=== PATIENT | male | born 1955 | race Caucasian/White ===

== ENCOUNTER → 2022-11-02 | Outpatient (CLI) | payer MEDICARE, OTHER ==
[2022-11-02 14:26] LABS: African American GFR (CKD) 61 (>60 ml/min/1.73 sqM); Blood Urea Nitrogen 30 mg/dL (9-20); Non-African American GFR(CKD) 53 (>60 ml/min/1.73 sqM)
--- NOTE | 2022-11-02 16:46 | CT ---
EXAMINATION TYPE: CT angio head neck DATE OF EXAM: 11/02/2022 COMPARISON: None HISTORY: dizziness and neck pain CT DLP: 1537.50 mGycm CONTRAST: Performed without and with IV Contrast, patient injected with 65ml mL of Isovue 370. Combination Contrast CTA cervical carotids and [place] CTA cervical carotids with 3-D recons truction examination is somewhat limited given poor timing of the contrast bolus. Contrast CTA of the cervical carotids was performed 3-D reconstruction imaging obtained at a separate workstation. Right carotid system: Mild plaque is seen of the right common carotid artery. There is mild plaque a lso noted at the carotid bulb and proximal ICA. No significant diameter reduction. ECA is patent. Right vertebral artery appears unremarkable. Left carotid system: Mild plaque is seen of the left common carotid artery. There is mild plaque als o noted at the carotid bulb and proximal ICA. No significant diameter reduction. ECA is patent. Lef t vertebral artery appears unremarkable. 1.1 cm solid nodule right thyroid lobe. Consider ultrasound correlation. IMPRESSION: 1. No significant diameter reduction to account for the patient's symptoms. CTA [place] with 3-D reconstruction Contrast CTA of the [place] was performed 3-D reconstruction imaging obtained at a separate workstation. Vertebrobasilar system as well as intracranial portions of the internal carotid arteries and their ma mary[place]ruz tributaries are patent. I do not see evidence for sizable aneurysm or vascular malformation. Pl ease note MRI provides greater sensitivity and specificity. Visualized brain appears grossly unremar kable. IMPRESSION: 1. Limited study given venous contamination. No sizable aneurysm or vascular malformation appreciated with certainty. NASCET criteria was used in interpretation of this exam?
== END | disposition home or self-care (01) ==
LOC: RADCTMAIN 13:51
PROVIDERS: ATTEND Orthopaedic Surgery
DX: R42 Dizziness and giddiness (principal); R55 Syncope and collapse
CPT/HCPCS: 82565; 84520; 70496; 70498; 36415; Q9967

== ENCOUNTER → 2023-01-11 | Outpatient (CLI) | payer MEDICARE, OTHER ==
[2023-01-11 15:52] LABS: Blood Urea Nitrogen 28.2 mg/dL (9.0-27.0); Carbon Dioxide 24.3 mmol/L (21.6-31.8); Chloride 104 mmol/L (96-109); Potassium 4.9 mmol/L (3.5-5.5); Sodium 141 mmol/L (135-145)
[2023-01-11 15:55] LABS: HCT 38.9 % (39.6-50.0); HGB 12.5 d/dL (13.0-17.0); MCH 29.7 pg (27.0-32.0); MCHC 32.1 d/dL (32.0-37.0); MCV 92.4 FL (80.0-97.0); Mean Platelet Volume 12.4 FL (9.5-12.2); NRBC Per 100 WBC 0 X 10*3/uL (0.00-0.01); Platelet Count 214 X 10*3/uL (140-440); RBC 4.21 X 10*6/uL (4.40-5.60); RDW 13.8 % (11.5-14.5); WBC 7.28 X 10*3/uL (4.50-10.00)
== END | disposition home or self-care (01) ==
LOC: LABPAT 09:19
PROVIDERS: ATTEND Internal Medicine Interventional Cardiology
DX: Z01.812 Encounter for preprocedural laboratory examination (principal); I34.0 Nonrheumatic mitral (valve) insufficiency
CPT/HCPCS: 80051; 82565; 84520; 85027

== ENCOUNTER 2023-01-18 08:52 | Day surgery (SDC) | payer MEDICARE, OTHER ==
[~2023-01-18 08:52] MED LIST: ALPRAZolam 0.25 MG TAB PO PRN; ALPRAZolam 0.5 MG TAB PO PRN; ASPIRIN 325 MG TAB PO STA; HEPARIN SODIUM,PORCINE (1 ML) 2,500 UNIT in SODIUM CHLORIDE 0.9% 250 ML IRRIGATION PRN; HEPARIN SODIUM,PORCINE 10,000 UNIT in SODIUM CHLORIDE 0.9% 1,000 ML IRRIGATION PRN; NITROGLYCERIN SL TABS 0.4 MG TAB SUBLINGUAL PRN; SODIUM CHLORIDE 0.9% 1,000 ML in EMPTY BAG 1 BAG IV ONE
[2023-01-18 09:19] VITALS: RESP 18; TEMP 98
[2023-01-18 09:20] LABS: Glucose,Whole Blood 124 mg/dL (70-110)
[2023-01-18 09:53] LABS: INR 1.1 (<1.2); Prothrombin Time 11.5 sec (10.0-12.5)
[2023-01-18] MEDS ORDERED: HEPARIN SODIUM,PORCINE 30 ML 30 ML ONE (10:32)
[2023-01-18] MEDS ORDERED: VERAPAMIL 2.5 MG/ML 2 ML AMP ONE (10:32)
[2023-01-18] MEDS ORDERED: MIDAZOLAM 2 MG/2 ML VIAL IVP ONE (10:50)
[2023-01-18] MEDS ORDERED: LIDOCAINE 1% INJ 10MG/ML (5 ML VIAL-PF) SQ ONE (11:03)
[2023-01-18] MEDS ORDERED: VERAPAMIL SYRINGE (5 MG/10 ML) INTRAARTER ONE (11:07)
[2023-01-18] MEDS ORDERED: HEPARIN SODIUM 1,000 UN/ML (10ML VL) IV ONE (11:07)
[2023-01-18] MEDS ORDERED: IOPAMIDOL-370 100ML BTL INJ ONE (11:12)
[2023-01-18] MEDS ORDERED: RX INFO: IV CONTRAST WAS GIVEN 1 EACH MISC MISCELLANE PRN (11:14)
[2023-01-18] MEDS ORDERED: SODIUM CHLORIDE 0.9% 1,000 ML IV SCH (11:15)
--- NOTE | 2023-01-18 11:18 | P.PCN ---
Date of Procedure: 01/18/23 Operative Findings: CARDIAC CATHETERIZATION PERFORMING PHYSICIAN: Shyam Napier MD, RPVI PROCEDURE PERFORMED: 1. Selective right and left coronary angiogram 2. Left heart catheterization 3. Ultrasound-guided access of the right radial artery INDICATION: This is a 67-year-old gentleman was diabetes and hypertension and dyslipidemia who was symptomatic. He underwent myocardial perfusion imaging stress test and that came in to be abnormal showing ischemia COMPLICATION: None APPROACH: Right radial artery LEVEL OF SEDATION: Moderate with a sedation length of 10 minutes PROCEDURE DESCRIPTION: After obtaining an informed consent, the patient was brought to cardiac lab[facility]. Local anesthesia was performed using lidocaine subcutaneously. The right radial artery was cannulated using Seldinger technique, the guidewire passed easily, following that we advanced a 5-Georgian sheath dilator assembly, the wire and dilator were removed and sheath was flushed. Following that, 2 mg of verapamil along with 5000 unit heparin were given. Selective right and left coronary angiogram using a 6-Georgian JR4 and JL 3.5 catheters. Following that we did left heart catheterization using the JL 3.5 which across aortic valve then I did pulled back across the valve The procedure was completed there was no complication. SELECTIVE CORONARY ANGIOGRAM: The right coronary artery: Large caliber vessel and a dominant vessel. Its angiographically normal. Left main: Has mild disease only. Bifurcates into an LCx and LAD The left circumflex: Large caliber vessel nondominant vessel was mild disease only. The left anterior descending artery: Large caliber vessel. The LAD is angiographically normal. It gives rises into a diagonal branch which seems to be angiographically normal. The LAD does not reach the apex HEMODYNAMICS: The LVEDP was 12 mmHg was no significant gradient across aortic valve CONCLUSION: 1. Normal coronary angiogram 2. Normal left-sided filling pressure POSTPROCEDURE MANAGEMENT: Medical treatment
[2023-01-18 14:54] VITALS: BP 130/60; PULSE 78
== END 2023-01-18 15:24 | disposition home or self-care (01) ==
LOC: CATHCVL 08:52
PROVIDERS: ATTEND Internal Medicine Interventional Cardiology
DX: I34.0 Nonrheumatic mitral (valve) insufficiency (principal); I10 Essential (primary) hypertension; E78.5 Hyperlipidemia, unspecified; E11.9 Type 2 diabetes mellitus without complications; F17.210 Nicotine dependence, cigarettes, uncomplicated; Z82.49 Family history of ischemic heart disease and other diseases of the circulatory system; Z79.82 Long term (current) use of aspirin; Z88.2 Allergy status to sulfonamides; Z79.899 Other long term (current) drug therapy
CPT/HCPCS: 93458; 85610; C1769; C1894; J2250; J2001; J1644; Q9967

== ENCOUNTER → 2023-04-28 | Outpatient (CLI) | payer MEDICARE, OTHER ==
[2023-04-28 13:57] LABS: Partial Thromboplastin Time 41.8 sec (22.0-30.0); Prothrombin Time 20.4 sec (10.0-12.5)
[2023-04-28 18:41] LABS: HCT 36.7 % (39.6-50.0); HGB 11.8 g/dL (13.0-17.0); MCH 29.4 pg (27.0-32.0); MCHC 32.2 g/dL (32.0-37.0); MCV 91.5 FL (80.0-97.0); Mean Platelet Volume 12.1 FL (9.5-12.2); NRBC Per 100 WBC 0 X 10*3/uL (0.00-0.01); Platelet Count 215 X 10*3/uL (140-440); RBC 4.01 X 10*6/uL (4.40-5.60); WBC 7.07 X 10*3/uL (4.50-10.00)
[2023-04-28 21:34] LABS: ALT 15 U/L (10-49); AST 21 U/L (14-35); Albumin 4.5 g/dL (3.8-4.9); Albumin/Globulin Ratio 1.61 Ratio (1.60-3.17); Alkaline Phosphatase 68 U/L (41-126); Blood Urea Nitrogen 33.6 mg/dL (9.0-27.0); Calcium 9.7 mg/dL (8.7-10.3); Carbon Dioxide 26.3 mmol/L (21.6-31.8); Chloride 101 mmol/L (96-109); Globulin 2.8 g/dL (1.6-3.3); Glucose 118 mg/dL (70-110); Potassium 4.7 mmol/L (3.5-5.5); Sodium 140 mmol/L (135-145); Total Bilirubin 0.3 mg/dL (0.3-1.2); Total Protein 7.3 g/dL (6.2-8.2)
== END | disposition home or self-care (01) ==
LOC: LABWHC1 12:04
PROVIDERS: ATTEND Orthopaedic Surgery
DX: Z01.818 Encounter for other preprocedural examination (principal); E11.65 Type 2 diabetes mellitus with hyperglycemia; E04.1 Nontoxic single thyroid nodule; E29.1 Testicular hypofunction
CPT/HCPCS: 36415; 80053; 82306; 83735; 85027; 85610; 85730; 86850; 86900; 86901; 87070

== ENCOUNTER 2023-05-06 10:43 | Inpatient (IN) | payer MEDICARE, OTHER ==
[2023-05-02 13:09] VITALS: BMI 31.7
--- NOTE | 2023-05-06 07:02 | P.HPOR ---
History of Present Illness H&P Date: 04/28/23 .D:Date: 04/28/23 : 11:03am .T:Title: [facility] History and Physical Date of :55 [id number]: NKDA Age: 67 year Height: 6' Weight: 231 lbs BMI: 31.33 kg/m2 Occupation: Retired VAS: 6 Hand:Right IMPRESSION: It was my pleasure to have seen and examined Stanislaw. I reviewed the patient's clinical syndrome, physical findings, and imaging studies during the appointment today. It is my impression that the patient has a diagnosis of. 1. C5-7 spondylosis and stenosis 2. Upper extremity radiculopathy 3. Dizziness & syncope I outlined the natural course history without intervention and various interventional options. Spine Surgery Risk Review Mr. Vail is presenting for evaluation of neck and bilateral upper extremity pain, bilateral upper extremity numbness and tingling. It was my pleasure to have seen and examined Mr. Vail. In our visit today we have had a chance to go over subjective complaints, physical examination findings and treatments including the natural course history without intervention and various interventional options. The patients imaging demonstrates: XRay Cervical multiview (Lateral, Flexion, Extension, AP, Oblique) 6 views taken at [facility] on 09/08/22: - Re-reviewed with the patient today. moderate multilevel spondylitic and degenerative changes with straightening of the normal lordosis. Multilevel diminished disc, most prominent C4-C7. There is bilateral foraminal stenosis at C5-C7. Anterior osteophyte complex present C5-C6, C6-C7. There is no subluxation between flexion and extension films. Vertebral body heights are preserved. No acute osseous abnormalities. MRI scancompleted at an Outside Facility from08/06/22 of [facility] Sp[facility]: - Re-reviewed with the patient today. Impression: 1. large left paracentral endplate spurring at C5-C6 has significant anterior thecal sac compression, cord contact in cord deformity. This extends into the left foramen with severe stenosis. Cord signal abnormality is not identified on this exam. Spinal canal narrowing is present. 2. Subligamentous disc h Subligamentous disc herniations with minimal to mild anterior thecal sac compression C2-C3, C3-C4, C4-C5. No spinal canal stenosis at these levels. On physical exam, Mr. Vail demonstrates: pain persisting around the base of the neck that radiates down into the bilateral upper extremities with a dull, ache-like quality. He notes frequent headaches, dizziness, and syncopal episodes. The patient denies experiencing any blurred or double vision at this time. The patient states that his neck pain is exacerbated by all activity, which makes it very difficult for him to complete any of his regular activities of daily living. The patient reports experiencing moderate to severe sleep disturbances related to his ongoing pain and associated symptoms. The patient notes that his symptoms have started to become unbearable. I have explained to the patient that as their condition progresses it will cause further neurological deficits and eventual paralysis. Based on the patients imaging, physical exam, and the rapid progression and disabling nature of their symptoms, at this time I recommend surgery in the form of a: C5-7 ACDF. I discussed the risk and benefits of this procedure at length with Mr. Vail. The patient agreed to considered pursuing the procedure above mentioned. Prior to surgery, she should follow up with her PCP (Cardio, ID, IM etc) for clearance. Questions were invited and answered, and the patient wishes to proceed as outlined below. Currently, I am recommendin.C5-7 ACDF 2.Review of surgical risks and benefits as well as an educational packet on the proposed surgical procedure. Risks: All surgical procedures come with inherent risks, including those related to positioning, anesthesia, intraoperative findings, and postoperative complications. It is important to understand that surgery does not come with any guarantee of a successful outcome as complications and adverse events are always possible. The patient was given a handout in office today discussing the surgical procedure and risks associated with the intervention, both of which were discussed with the patient. These risks include but are not limited to the following: * Experiencing same, different or even worse symptoms in back, neck, arms, or legs compared to before surgery. Requiring further surgery or other forms of treatment presently or at some time in the future at same or other levels of the intended spine surgery. On an extreme but fortunately relatively rare basis severe complication such as blindness, stroke, heart attack, temporary and/or permanent nerve injury, paralysis, coma, or may occur, sometimes without known explanation. Surgical complications may include but are not limited to risk of infection, fluid accumulation in the surgical dissection site, including a seroma or hematoma, that requires additional surgery, wound drainage, bleeding, new numbness or weakness, vision changes/loss, spinal fluid leakage, non-healing and/or infected incision, headaches, difficulty or inability to swallow, hoarseness, hemopneumothorax, pneumothorax, impotence, retrograde ejaculation, vaginal dryness; injury to nerves, spinal cord, blood vessels, lymphatics or other vital organs (i.e., bowel injury, injury to the great vessels); heterotopic bone formation; complications related to the hardware such as screws, rods, cages including misplaced hardware, device failure, instrumentation at the wrong spine level, hardware fracture/breakage, or hardware loosening; vertebral failure of the spinal column above or below the newly placed hardware; retained surgical instrumentations or devices and the need for further surgery. * Medical risks of the planned spine surgery include but are not limited to generalized Infections to the whole body or local areas outside of the surgical site (sepsis), heart attack, bleeding, anaphylaxis, meningitis, seizure, epilepsy, hearing loss, burn ellis, laceration of the head or other areas of the body, bruising, hypersensitivity of the skin, bladder over distension; allergic reaction; shoulder injury related to positioning; fat, blood and air clots to other areas of the body like heart, lungs, brain; failure of internal organs such as lungs, kidneys, liver and excessive bleeding. If blood transfusions are necessary, note that transfusions may cause intolerance reactions such as anaphylaxis or other complex reactions. Despite best efforts, the results of spine surgery might not heal in terms of bone, soft tissues such as skin, fascia, ligaments, and joints. Additionally, in order to achieve best possible results, spine surgery may be carried out beyond the initially planned levels and involve decompression, fusion including insertion of hardware at levels other than the original intended area of surgical interest change some portions of the procedure in order to ensure the best possible outcomes. With spine surgery and spinal fusion, there are different off label uses of instrumentation (devices, implants and hardware) as well as biological substances (bone morphogenic proteins, demineralized bone matrix) as well as using extra bone from allograft sources (i.e. cadaver bone) or autograft (iliac crest bone, ribs, or the spine itself). The patient has been given information about these practices and their inherent risks and benefits. [facility] is an educational center that serves as a training facility for neurosurgical and orthopedic [employer] and Nursing students. Physician assistants are medically trained surgical providers who function in the outpatient, inpatient, and operating room setting under the direct supervision of the attending surgeon. [facility] has multiple operating rooms with single and overlapping rooms running daily. They currently function under the required guidelines as produced by the [facility] Finance Committee with regards to the overlapping rooms and will continue to comply with changes to this policy as they occur. The requirements include and are complied with as follows: (1) the critical portions of the overlapping rooms will not occur at the same time, (2) the attending physician will be physically present during the critical portions of the procedure and immediately available during the entire case, and (3) a back-up attending is designated should the primary attending not be immediately available. The patient has had a chance to review all the listed information, has been given print outs detailing this information, and has had all his/her questions answered to their satisfaction. It was my pleasure to have seen and examined Mr. Vail. In our visit today we have had a chance to go over my understanding of our patient's current condition, the natural course history without intervention and various interventional options. Questions were invited and answered, and the patient wis hes to proceed as outlined above. I have seen and examined the patient for 25 minutes and we have spent more than 50% of the time in repeat and detailed counseling about the patient's condition, its natural course history with out and as much as can be predicted with surgery and re-review of various surgical treatment options. In conclusion, Mr. Vail requested we proceed with the above suggested surgery and are willing to accept risks and limitations of the suggested surgery as nature of the disease process and our best attempts at treatment for the condition. Follow- up: Post procedure Patient Education: (Informational booklet, instructions, etc) given at today's appointment: Yes .ED:Patient Education: Y Medications Reviewed: YES In our visit today Mr. Vail and I have had a chance to go over my understanding of the patient's current condition, the natural course history without intervention and various interventional options. Questions were invited and answered, and the patient wishes to proceed as outlined above. I will be sure to keep you updated afterMr. Vail returns here for further follow-up. Thank you again for your referral. Please do not hesitate to contact me if you have any further questions. Signed and authenticated by: Pedro Cavazos [facility] [address] [place] [address] This message is confidential, intended only for the named recipient(s) and may contain information that is privileged or exempt from disclosure under applicable law. If you are not the intended recipient(s), you are notified that the dissemination, distribution or copying of this information is strictly prohibited. If you received this message in error, please notify the sender then delete this message. Patient verbalizes understanding of the information discussed. The above note was initiated by Kell Solis, physician recording medical assistant internal medicine for Dr. Pedro Nobles. This note has been reviewed by Dr. Nobles, who has made his personal changes and impressions for this document. CC: PAUL Tuttle # SIGNED BY Pedro Nobles (GOO)05/02/2023 04:00PM Past Medical History Past Medical History: Atrial Fibrillation, Cancer, Diabetes Mellitus, Hearing Disorder / Deafness, Hyperlipidemia, Hypertension, Osteoarthritis (OA), Prostate Disorder Additional Past Medical History / Comment(s): Hx skin cancer. Hard of hearing. Enlarged prostate. Thyroid nodule. History of Any Multi-Drug Resistant Organisms: None Reported Past Surgical History: Cholecystectomy, Hernia Repair Past Anesthesia/Blood Transfusion Reactions: No Reported Reaction Additional Past Anesthesia/Blood Transfusion Reaction / Comment(s): "I get goofy when I wake up". Past Psychological History: No Psychological Hx Reported Smoking Status: Former smoker Past Alcohol Use History: None Reported Additional Past Alcohol Use History / Comment(s): Quit smoking 20 yrs ago, recently smoked for a year but quit 4 months ago. Past Drug Use History: None Reported - Past Family History Mother Family Medical History: Cancer, Deep Vein Thrombosis (DVT) Medications and Allergies Home Medications Medication Instructions Recorded Confirmed Type Cholecalciferol (Vitamin D3) 125 mg PO DAILY 01/13/23 05/02/23 History [Vitamin D3 (125 MCG = 5,000 IU)] Cyanocobalamin (Vitamin B-12) 1,000 mcg PO DAILY 01/13/23 05/02/23 History [Vitamin B-12] Magnesium 400 mg PO DAILY 01/13/23 05/02/23 History Metoprolol Tartrate [Lopressor] 50 mg PO QAM 01/13/23 05/02/23 History Pioglitazone HCl 15 mg PO QAM 01/13/23 05/02/23 History Pravastatin Sodium [Pravachol] 20 mg PO HS 01/13/23 05/02/23 History Terazosin [Hytrin] 2 mg PO HS 01/13/23 05/02/23 History Warfarin [Coumadin] 5 mg PO 1900 01/13/23 05/02/23 History amLODIPine [Norvasc] 10 mg PO QAM 01/13/23 05/02/23 History Enoxaparin [Lovenox] 100 mg SQ BID 05/02/23 05/02/23 History metFORMIN HCL 1,000 mg PO BID 05/02/23 05/02/23 History Allergies Allergy/AdvReac Type Severity Reaction Status Date / Time Sulfa (Sulfonamide Allergy Rash/Hives Verified 05/02/23 12:29 Antibiotics) Physical Examination Osteopathic Statement: *. No significant issues noted on an osteopathic structural exam other than those noted in the History and Physical/Consult.
[~2023-05-06 10:43] MED LIST changes: -ALPRAZolam 0.25 MG TAB PO PRN; -ALPRAZolam 0.5 MG TAB PO PRN; -ASPIRIN 325 MG TAB PO STA; -HEPARIN SODIUM,PORCINE (1 ML) 2,500 UNIT in SODIUM CHLORIDE 0.9% 250 ML IRRIGATION PRN; -HEPARIN SODIUM,PORCINE 10,000 UNIT in SODIUM CHLORIDE 0.9% 1,000 ML IRRIGATION PRN; -NITROGLYCERIN SL TABS 0.4 MG TAB SUBLINGUAL PRN; +ONDANSETRON 4 MG/2 ML VIAL IVP PRN; -SODIUM CHLORIDE 0.9% 1,000 ML in EMPTY BAG 1 BAG IV ONE; +TRANEXAMIC 1,000 MG/100ML-NACL 1,000 MG in SALINE 1 100ML.BAG IVPB PRN
[2023-05-06] MEDS ORDERED: MIDAZOLAM 2 MG/2 ML VIAL IV PRN (11:00)
[2023-05-06 11:26] LABS: Glucose,Whole Blood 127 mg/dL (70-110)
[2023-05-06] MEDS: LACTATED RINGERS 1,000 ML IV SCH (11:29)
[2023-05-06] MEDS: LACTATED RINGERS 1,000 ML IV ONE ×2 (11:34→14:26)
[2023-05-06] MEDS: MIDAZOLAM 2 MG/2 ML VIAL IVP ONE ×2 (11:45→12:05)
[2023-05-06] MEDS: ACETAMINOPHEN TAB 500 MG TAB PO PRN (11:45)
[2023-05-06] MEDS: GABAPENTIN 300 MG CAP PO PRN (11:45)
[2023-05-06 11:50] LABS: Prothrombin Time 11.2 sec (10.0-12.5)
[2023-05-06] MEDS: fentaNYL (PF) 50 MCG/ML 2 ML AMP IVP ONE (11:50)
[2023-05-06] MEDS: ONDANSETRON 4 MG/2 ML VIAL IVP ONE (12:18)
[2023-05-06] MEDS ORDERED: TRANEXAMIC 1,000 MG/100ML-NACL PREMIX BAG ONE (12:25)
[2023-05-06] MEDS ORDERED: LIDOCAINE 1% INJ 10MG/ML (20 ML MDV) ONE (12:25)
[2023-05-06] MEDS ORDERED: fentaNYL (PF) 50 MCG/ML 2 ML AMP ONE (12:25)
[2023-05-06] MEDS ORDERED: PROPOFOL 10 MG/ML 20 ML VIAL IV ONE (12:25)
[2023-05-06] MEDS ORDERED: KETAMINE HCL IN 0.9 % NACL 50 MG/5 ML SYRINGE ONE (12:25)
[2023-05-06] MEDS ORDERED: SUCCINYLCHOLINE CHLORIDE 200 MG/10 ML VIAL IV ONE (12:25)
--- NOTE | 2023-05-06 12:29 | P.ANPRN ---
Procedure Note - Anesthesia - Invasive Line Right Arterial Line Time Out Performed: Yes Date of Procedure: 05/06/23 Time of Procedure: 12:15 Location of Patient: PreOp Preparation: Sterile Prep Arterial Line Location: Briachial Ultrasound Used: Yes Purpose - Visualization and Identification of Vasculature: Yes Narrative: Invasive line placement per sterile protocol utilized. Initial attemptX2 radial artery without success by me. Dr. Strong in R. brachial artery with success
[2023-05-06] MEDS: GELATIN SPONGE,ABSORB (LARGE) 1 EACH SPONGE TOPICAL ONE (12:30)
[2023-05-06] MEDS: THROMBIN (BOVINE) 5,000 UNIT VIAL TOPICAL ONE (12:30)
[2023-05-06] MEDS: VANCOMYCIN 1,000 MG VIAL MISCELLANE ONE (12:30)
--- NOTE | 2023-05-06 14:57 | XR ---
Fluoroscopy INDICATION: Pain FINDINGS: Fluoroscopy time: 15.1 seconds. Total dose area product (DAP) in uGy*m?, mGy*cm? (or similar): 0.182 Images obtained: 9. IMPRESSION: 1. Documentation of fluoroscopy.
--- NOTE | 2023-05-06 15:06 | P.OP ---
Date of Procedure: 05/06/23 Preoperative Diagnosis: 1. 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 BUE RADICULOPATHY AND WEAKNESS 3. NECK PAIN 4. COMPLEX MEDICAL PATIENT Postoperative Diagnosis: 1. 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 BUE RADICULOPATHY AND WEAKNESS 3. NECK PAIN 4. COMPLEX MEDICAL PATIENT Procedure(s) Performed: 1. C5-6 ANTERIOR CERVICAL ARTHRODESIS 2. C6-7 ANTERIOR CERVICAL ARTHRODESIS 3. ANTERIOR INSTRUMENTATION C5-7 4. INSERTION OF BIOMECHANICAL DEVICE C5-6 AND C6-7 USE OF IONM USE OF IO MICROSCOPE Implants: AYAD/4 CADE INTERBODY 16MM SCREW PLATE INTERFACE [employer] Anesthesia: GETA Surgeon: Pedro Nobles Vice President Of Finance #1: Jayro Stoll (WAS PRESENT AND ASSISTED WITH ALL ASPECTS OF THE CASE FROM POSITION TO CLOSURE) Estimated Blood Loss (ml): 25 IV fluids (ml): 1,125 Urine output (ml): 0 Pathology: none sent Condition: stable Disposition: PACU Indications for Procedure: Mr. Vail is presenting for evaluation of neck and bilateral upper extremity pain, bilateral upper extremity numbness and tingling. It was my pleasure to have seen and examined Mr. Vail. In our visit today we have had a chance to go over subjective complaints, physical examination findings and treatments including the natural course history without intervention and various interventional options. The patients imaging demonstrates: XRay Cervical multiview (Lateral, Flexion, Extension, AP, Oblique) 6 views taken at [facility] on 09/08/22: - Re-reviewed with the patient today. moderate multilevel spondylitic and degenerative changes with straightening of the normal lordosis. Multilevel diminished disc, most prominent C4-C7. There is bilateral foraminal stenosis at C5-C7. Anterior osteophyte complex present C5-C6, C6-C7. There is no subluxation between flexion and extension films. Vertebral body heights are preserved. No acute osseous abnormalities. MRI scancompleted at an Outside Facility from08/06/22 of [facility] Sp[facility]: - Re-reviewed with the patient today. Impression: 1. large left paracentral endplate spurring at C5-C6 has significant anterior thecal sac compression, cord contact in cord deformity. This extends into the left foramen with severe stenosis. Cord signal abnormality is not identified on this exam. Spinal canal narrowing is present. 2. Subligamentous disc h Subligamentous disc herniations with minimal to mild anterior thecal sac compression C2-C3, C3-C4, C4-C5. No spinal canal stenosis at these levels. On physical exam, Mr. Vail demonstrates: pain persisting around the base of the neck that radiates down into the bilateral upper extremities with a dull, ache-like quality. He notes frequent headaches, dizziness, and syncopal episodes. The patient denies experiencing any blurred or double vision at this time. The patient states that his neck pain is exacerbated by all activity, which makes it very difficult for him to complete any of his regular activities of daily living. The patient reports experiencing moderate to severe sleep disturbances related to his ongoing pain and associated symptoms. The patient notes that his symptoms have started to become unbearable. I have explained to the patient that as their condition progresses it will cause further neurological deficits and eventual paralysis. Based on the patients imaging, physical exam, and the rapid progression and disabling nature of their symptoms, at this time I recommend surgery in the form of a: C5-7 ACDF. I discussed the risk and benefits of this procedure at length with Mr. Vail. The patient agreed to considered pursuing the procedure above mentioned. Prior to surgery, she should follow up with her PCP (Cardio, ID, IM etc) for clearance. Questions were invited and answered, and the patient wishes to proceed as outlined below. Currently, I am recommendin.C5-7 ANTERIOR CERVICAL DISCECOMTY AND FUSION Description of Procedure: C5-7 ACDF The patient was seen and examined in the preoperative area. All preoperative protocols were followed. Informed consent was obtained, risks and benefits of the procedure were discussed at length. Risks including bleeding infection damage to the surrounding tissue and risk of reoperation were discussed with the patient. Risk of anesthesia up to and including was discussed with the patient. These are outlined in the risk review. They were willing to accept these risks and all the risks of surgery. The patient was given a weight-based dose of antibiotics in the form of 2 g Ancef. The patient was seen and evaluated by the anesthesia team who deemed them fit for surgery. The site was marked, the patient was willing to proceed with the procedure. The patient was transferred to the operative suite by the Department of anesthesia. They were then drifted off to sleep by the department anesthesia and GETA was performed. The patient tolerated this well. Adames catheter was placed by nursing staff, a-traumatically. Once confirmation of lines and ventilation the patient was transferred to a Supine Shahram table very carefully. All bony prominences including wrists, elbows, axilla, chest, hips, and thighs, and feet were padded very well. Special attention was paid to the genitalia, and these were padded accordingly. SCDs were placed on bilateral lower extremities and were connected. Arms were well padded and placed at their side thumbs up. Once in position, again we confirmed good ventilation capabilities and that lines were running appropriately. The patients Cervical spine was then exposed. 1010s were placed outlining the incision site. Standard alcohol was used to clean the incision site and allowed to dry. C-arm was used to bio-berna the patient and confirm level for incision which was marked with a skin marker. Operative briefing was performed with all teams and everyone in agreement to proceed. The patient was then prepped and draped in a normal sterile fashion. Timeout was then performed, and all parties agreed with the procedure to be performed. Transverse skin incision was then made on the right side of the patient's neck 3 cm and dissection taken down to the platysma which was split transversely. Sub platysma flap was made, and interval identified between SCM and medial structures. Omohyoid was visualized and protected. Blunt dissection taken down to the anterior cervical fascia which was identified. Blunt probe was then plac ed and lateral image taken which confirmed levels for operation. These levels were then marked with a bovi. Subperiosteal dissection of the longissimus muscles were then done over these levels identifying uncovertebral joints bilaterally. Retractor was then placed deep to these muscles and held in place with a bed arm. Starting at C6-7, Chandler pins were placed into C6 and C7 and gentle distraction taken out over the levels. Madie rongeur used to remove disc material. Operating microscope brought in for visualization. Complete discectomy performed at this level with curette, rongure and pituitary. High speed ke used to remove osteophytes anteriorly and posteriorly until PLL was identified. 6-0 up curette then used to identify the canal and resect the PLL. 2-0 and 3-0 Kerrison used then to remove PLL and disc herniation and performed b/l foraminotomies. Once good decompression was accomplished, meticulous hemostasis was performed. Sizers were then placed under lateral fluoroscopy until the desired height and lordosis. Cage was then selected, packed with autograft and allograft and placed under lateral imaging. Once in good position it was tested and stable. Motors run before and after cage placement were stable. The wound was irrigated, and autograft placed lateral to the cage anteriorly for fusion. Chandler pin was then removed from C7 and placed into C5. Gentle distraction taken out over C5-6 now. Complete discectomy done at C5-6 as described including decompression, b/l foraminotomies and PLL resection. Burring of endplates was minimal, osteophytes removed as described. Spacers were then sized and placed under lateral imaging. Cage selected, packed with graft and placed under lateral images. Once in position, meticulous hemostasis performed, and motors remained stable before and after cage placement. AP image confirmed good placement of cages. Wound was irrigated. Anterior instrumentation was then selected and screws drilled into C7 and placed and Then into C6. This was repeated at C5 with variable screws. All locking mechanisms were set, and all screws had good purchase. Final AP and lateral images taken confirmed good placement of hardware and good reduction and protestant of height. The wound was then irrigated copiously with NSS. Surgicel placed deep in the wound. A deep drain placed out a separate incision and sewed into place. Layered closure then performed with 3-0 Vicryl in the platysma and subQ tissue. 4-0 Strata fix in the subcuticular tissue. The wound was then cleaned, and dried and skin glue placed. Once glue dried on Opifoam was placed. The patient was then transferred back to their hospital bed a-traumatically. The drain continued to hold suction. They were placed in a soft collar. They we re then awakened by the department of anesthesia having tolerated the procedure well without complications.
[2023-05-06] MEDS ORDERED: ONDANSETRON 4 MG/2 ML VIAL IVP PRN (15:13)
[2023-05-06] MEDS ORDERED: MAGNESIUM HYDROXIDE 2,400 MG/30 ML CUP PO PRN (15:13)
[2023-05-06] MEDS ORDERED: SENNOSIDES-DOCUSATE SODIUM 1 EACH TAB PO PRN (15:13)
[2023-05-06] MEDS: HYDROmorphone 0.5 MG/0.5 ML SYRINGE IVP PRN (15:58)
[2023-05-06 16:10] LABS: Glucose,Whole Blood 109 mg/dL (70-110)
--- NOTE | 2023-05-06 16:49 | FL ---
EXAMINATION TYPE: FL guidance operating room Intraoperative/procedural fluoroscopic services were pro vided. Total fluoroscopy time is 15.1 seconds with a total of 8 submitted images to PACS. Please see the operative/procedural note for further details. DAP: 0.1882 mGym2
[2023-05-06] MEDS: HYDROcodone/APAP 7.5-325MG 1 EACH TAB PO PRN (21:11)
[2023-05-07 05:26] LABS: Glucose,Whole Blood 106 mg/dL (70-110)
[2023-05-07] MEDS: HYDROmorphone 0.5 MG/0.5 ML SYRINGE IVP PRN (05:28)
[2023-05-07] MEDS ORDERED: DEXTROSE 50% SYRINGE 50 ML IVP PRN ×2 (07:07)
--- NOTE | 2023-05-07 07:16 | P.CONS ---
History of Present Illness - Reason for Consult Consult date: 05/07/23 Medical managment Requesting physician: Pedro Nobles - Chief Complaint Post C spine surgery, DM, Coagulopathy, A Fib - History of Present Illness HISTORY OF PRESENT ILLNESS: 67-year-old male [facility] [place] for office patient with past medical history of A-fib, diabetes, hypertension, hyperlipidemia, who is on long-term anticoagulation and seen cardiology regular basis and had negative recent cardiac workup including negative heart cath for any significant blockage. The patient has been evaluated for bilateral upper extremity pain numbness tingling and radiculopathy through his testing from September last year showed significant degenerative disc disease with curvature with multiple area of spinal stenosis between C5 and C7 and degenerative disc disease between C4 and C7 MRI of the spine showed large left paracentral endplate spurring with mild anterior compression of the C2-C3, C3-C4, C4-C5. The patient had seen orthopedic and explained to him the procedure need to have done with his C5-7 ACDF.. Patient was cleared for surgery by our service and by cardiology, surgery was done successfully on 05/06/2023, he is resting comfortably in bed was admitted to the hospital afterward. Patient is on long-term anticoagulation management was placed on Lovenox for the last 5 days before his surgery will be converted back into warfarin with daily PT/INR until his INR is therapeutic Lovenox 120 mg subcutaneous twice a day was restarted back again. And if agreed by orthopedic we will start him back on warfarin between 5 and 10 mg daily till his INR is about 1.5. Will start backing off on his Lovenox. Pain is still an issue but well-managed with current medication. REVIEW OF SYSTEMS: CONSTITUTIONAL: Well-developed no acute respiratory distress. Resting in bed with cervical spine collar on. EYES: No icterus sclerae, no conjunctivitis. EARS, NOSE, MOUTH, THROAT, and FACE: No sore throat, lymphadenopathy, carotid bruits or deformity. RESPIRATORY: No SOB cough or wheezes. CARDIOVASCULAR: No CP, Palpitation, PND, Orthopnea, or angina. History A-fib GI no chest pain. GASTROINTESTINAL: No Abd pain, Nausea or vomiting, no Diarrhea or constipation, No GI Bleed, no distention or masses. GENITOURINARY: Negative for Hematuria or UTI, no kidney stones. INTEGUMENT/BREAST: Negative for any muscular injury with mild osteoarthritis.. HEMATOLOGIC/LYMPHATIC: Negative for bleed or purpura. MUSCULOSKELTAL: Negative for Myalgia or arthralgia. NEURLOGICAL: No LOC, Sz or syncope, blurred vision dizziness or abnormality.. BEHAVIORAL/PSYCH: Negative. ENDOCRINE: Negative. PHYSICAL EXAMINATION: General Appearance: Alert, cooperative, no distress, appears stated age. Mildly overweight resting in bed with c-collar on. Neck HEENT: Supple, no lymphadenopathy, no thyroid enlargement, no carotid bruits. Lungs: Clear to auscultation without crackles or wheezes no rhonchi, no deformity. Chest Wall: Decreased expansion with deep inspiration no tenderness and no deformity was found on exam, no costochondral pain or discomfort. Heart: Irregular rate and rhythm, S1, S2 normal, no murmur, rub or gallop. Back: Symmetric, no curvature, ROM normal, no CVA tenderness. Abdomen: Soft, non-tender, bowel sounds active all four quadrants, no masses, no organomegaly. Extremities: Extremities normal, atraumatic, no cyanosis or edema. Pulses: 2+ and symmetric. Skin: Skin color, texture, tugor normal, no rashes or lesions. Neurologic: Alert oriented x3 cranial nerves II through XII intact, still have slight weakness in the upper extremities at this point. ASSESSMENT AND PLAN: _Post C5-7 ACDF: Continue postsurgical follow-up including GI, DVT, pulmonary prophylaxis. Patient pain management will be watched carefully. Also will watch patient hemodynamic status carefully as well. _A-fib: Resume medication including metoprolol titrate and will continue Lovenox for now while he is restarting back on warfarin until his INR is therapeutic. _Type 2 diabetes: Remain on metformin and pioglitazone will continue Accu-Chek with sliding scale coverage. _Hypertension: Resume amlodipine 10 mg a day along with Hytrin 2 mg daily and still on metoprolol titrate 50 mg daily. _Hyperlipidemia patient will be started back on pravastatin 20 mg a day. _BPH: Watch for any urinary retention remain on Hytrin currently no Adames catheter, we should watch patient residual to make sure there is no retention. _Anticoagulation: Patient was on warfarin 5 mg daily and was over bridge by Lovenox before surgery and the plan was to start Lovenox after surgery the patient was approved apparently for anticoagulation he is going to be started on Eliquis 5 mg twice a day start today and discontinue Lovenox altogether the patient end up leaving the hospital tomorrow he should be just on Eliquis without need for any further detail on anticoagulation. _GI prophylaxis: Pantoprazole 40 mg daily will be started. _DVT prophylaxis: Patient is already on anticoagulation. CODE STATUS: Full code. Dr. Nobles thank you much for the consult if I can be any further help to please let me know thank you. Past Medical History Past Medical History: Atrial Fibrillation, Cancer, Diabetes Mellitus, Hearing Disorder / Deafness, Hyperlipidemia, Hypertension, Osteoarthritis (OA), Prostate Disorder Additional Past Medical History / Comment(s): Hx skin cancer. Hard of hearing. Enlarged prostate. Thyroid nodule. History of Any Multi-Drug Resistant Organisms: None Reported Past Surgical History: Cholecystectomy, Hernia Repair Past Anesthesia/Blood Transfusion Reactions: No Reported Reaction Additional Past Anesthesia/Blood Transfusion Reaction / Comm: "I get goofy when I wake up". Past Psychological History: No Psychological Hx Reported Smoking Status: Former smoker Past Alcohol Use History: None Reported Additional Past Alcohol Use History / Comment(s): Quit smoking 20 yrs ago, recently smoked for a year but quit 4 months ago. Past Drug Use History: None Reported - Past Family History Mother Family Medical History: Cancer, Deep Vein Thrombosis (DVT) Medications and Allergies Home Medications Medication Instructions Recorded Confirmed Type Cholecalciferol (Vitamin D3) 125 mg PO DAILY 01/13/23 05/06/23 History [Vitamin D3 (125 MCG = 5,000 IU)] Cyanocobalamin (Vitamin B-12) 1,000 mcg PO DAILY 01/13/23 05/06/23 History [Vitamin B-12] Magnesium 400 mg PO DAILY 01/13/23 05/06/23 History Metoprolol Tartrate [Lopressor] 50 mg PO QAM 01/13/23 05/06/23 History Pioglitazone HCl 15 mg PO QAM 01/13/23 05/06/23 History Pravastatin Sodium [Pravachol] 20 mg PO HS 01/13/23 05/06/23 History Terazosin [Hytrin] 2 mg PO HS 01/13/23 05/06/23 History Warfarin [Coumadin] 5 mg PO 1900 01/13/23 05/06/23 History amLODIPine [Norvasc] 10 mg PO QAM 01/13/23 05/06/23 History Enoxaparin [Lovenox] 100 mg SQ BID 05/02/23 05/06/23 History metFORMIN HCL 1,000 mg PO BID 05/02/23 05/06/23 History Allergies Allergy/AdvReac Type Severity Reaction Status Date / Time Sulfa (Sulfonamide Allergy Rash/Hives Verified 05/06/23 11:10 Antibiotics) Physical Exam Vitals: Vital Signs Temp Pulse Pulse Resp BP Pulse Ox 05/07/23 00:25 98.6 F 78 18 141/78 96 05/06/23 19:00 57 L 16 132/61 96 05/06/23 18:50 97.6 F 77 18 146/71 92 L 05/06/23 18:30 56 L 16 121/56 99 05/06/23 18:00 61 12 117/53 100 05/06/23 17:45 62 17 120/54 99 05/06/23 17:30 60 15 138/55 99 05/06/23 17:15 61 16 128/51 98 05/06/23 17:00 68 16 139/58 97 05/06/23 16:45 66 16 140/55 97 05/06/23 16:30 77 16 150/71 97 05/06/23 16:15 76 16 137/68 100 05/06/23 15:58 72 16 142/68 100 05/06/23 15:44 68 14 142/67 100 05/06/23 15:25 96.8 F L 68 10 L 144/62 99 05/06/23 12:24 69 16 131/61 97 05/06/23 11:20 97.0 F L 66 157/70 99 Intake and Output 05/06/23 05/06/23 05/07/23 14:59 22:59 06:59 Intake Total 2049 500 Output Total 25 920 Balance 2024 500 -920 Intake: IV 2049 500 Output: Drainage 20 Right Anterior Neck 20 Urine 900 Estimated Blood Loss 25 Other: # Voids 4 Weight 108.3 kg 108.3 kg Results Labs: Abnormal Lab Results - Last 24 Hours (Table) 05/06/23 Range/Units 11:25 POC Glucose (mg/dL) 127 H (70-110) mg/dL
[2023-05-07] MEDS ORDERED: INSULIN ASPART (NovoLOG) 100 UNIT/ML VIAL SQ SCH (07:30)
[2023-05-07] MEDS: INSULIN ASPART (NovoLOG) 100 UNIT/ML VIAL SQ SCH (07:42)
[2023-05-07] MEDS: CYANOCOBALAMIN 500 MCG TAB PO SCH (08:03)
[2023-05-07] MEDS: MAGNESIUM OXIDE 400 MG TAB PO SCH (08:03)
[2023-05-07] MEDS: CHOLECALCIFEROL 125 MCG (5000 IU) TABLET PO SCH (08:03)
[2023-05-07] MEDS: metFORMIN 500 MG TAB PO SCH (08:03)
[2023-05-07] MEDS: METOPROLOL TARTRATE 50 MG TAB PO SCH (08:03)
[2023-05-07] MEDS: amLODIPine 10 MG TAB PO SCH (08:03)
[2023-05-07] MEDS: APIXABAN 5 MG TAB PO SCH (09:00)
[2023-05-07] MEDS: PIOGLITAZONE 15 MG TAB PO SCH (09:00)
--- NOTE | 2023-05-07 09:01 | P.PN ---
Subjective Progress Note Date: 05/07/23 Principal diagnosis: Status post C5-C7 ACDF Patient was evaluated today at bedside, his was present. Internal medicine was also present at bedside. Patient was a little shaky when initially trying to ambulate. He is utilizing the rigid c-collar. Mild serosanguineous bloody drainage noted in the drain. Patient's pain is controlled. He is having slight difficult time swallowing, he remains on soft foods. No headaches, lightheadedness, chest pain or shortness of breath Objective - Vital Signs Vital signs: Vital Signs Temp 98.6 F 05/07/23 00:25 Pulse 78 05/07/23 00:25 Resp 18 05/07/23 00:25 BP 141/78 05/07/23 00:25 Pulse Ox 96 05/07/23 00:25 FiO2 Intake & Output 05/06/23 05/07/23 05/07/23 18:59 06:59 18:59 Intake Total 2250 300 Output Total 25 920 Balance 2225 -620 Weight 108.3 kg 108.3 kg Intake: IV 2250 300 Output: Drainage 20 Right Anterior Neck 20 Urine 900 Estimated Blood Loss 25 Other: # Voids 4 - Exam Gen: AOx3, NAD VSS stable at this time Integument: Postop bandages in good position and condition, mild bloody drainage noted on the edges. Drain is putting out mild bloody serosanguineous fluid Palpation: No significant tenderness with palpation noted to the anterior posterior cervical spine ROM: Full range of motion in all major muscle groups of the bilateral upper and lower extremities, no focal deficits Sensory Exam: Senory exam to light touch is intact C5-T1 Senosry exam to light touch is intact L2-S1 Motor: 4/5 strength appreciated the bilateral upper extremities with shoulder elevation, shoulder abduction, elbow extension, elbow flexion, wrist extension, wrist flexion, shampoo person 4+/5 strength appreciated to bilateral lower extremities with knee flexion, knee extension, hip flexion, plantarflexion, dorsiflexion, EHL, FHL Reflexes: 2/4 in all UE and LE Negative Chanda's, Babinski, clonus bilaterally - Labs Labs: Abnormal Lab Results - Last 24 Hours (Table) 05/06/23 Range/Units 11:25 POC Glucose (mg/dL) 127 H (70-110) mg/dL Assessment and Plan Assessment: Postoperative day #1 status post C5-C7 ACDF Plan: Pain control, continue with current medications Recommend continuing soft diet until swallowing improves DVT prophylaxis, internal medicine was discussed with patient and the use of both Lovenox while his INR becomes therapeutic. Maintain rigid c-collar at this time Weight-bear as tolerated with walker Leave drain in place at this time, will reassess on 05/08/2023, likely remove at that time along with bandage change Medical recommendations appreciated Discharge planning: Plan for discharge to home on 05/08/2023 Time with Patient: Less than 30
[2023-05-07 11:54] LABS: Glucose,Whole Blood 114 mg/dL (70-110)
[2023-05-07] MEDS: CYCLOBENZAPRINE 5 MG TAB PO PRN (14:10)
[2023-05-07 16:50] LABS: Glucose,Whole Blood 101 mg/dL (70-110)
[2023-05-07] MEDS ORDERED: WARFARIN 5 MG TAB PO SCH (19:00)
[2023-05-07] MEDS: HYDROmorphone 1 MG/ML 1 ML SYRINGE IVP PRN (20:31)
[2023-05-07] MEDS: PRAVASTATIN SODIUM 20 MG TAB PO SCH (20:31)
[2023-05-07] MEDS ORDERED: ENOXAPARIN 120 MG/0.8 ML SYRINGE SQ SCH (21:00)
[2023-05-07 21:28] LABS: Glucose,Whole Blood 93 mg/dL (70-110)
[2023-05-07] MEDS: DOXAZOSIN 2 MG TAB PO SCH (21:29)
[2023-05-08 06:01] LABS: Glucose,Whole Blood 102 mg/dL (70-110)
[2023-05-08 09:15] LABS: HCT 32.1 % (39.6-50.0); HGB 10.5 g/dL (13.0-17.0); MCH 29.4 pg (27.0-32.0); MCHC 32.7 g/dL (32.0-37.0); MCV 89.9 FL (80.0-97.0); Mean Platelet Volume 12.1 FL (9.5-12.2); NRBC Per 100 WBC 0 X 10*3/uL (0.00-0.01); Platelet Count 172 X 10*3/uL (140-440); RBC 3.57 X 10*6/uL (4.40-5.60); WBC 11.87 X 10*3/uL (4.50-10.00)
[2023-05-08 09:31] LABS: ALT 52 U/L (10-49); AST 76 U/L (14-35); Albumin 3.8 g/dL (3.8-4.9); Albumin/Globulin Ratio 1.73 Ratio (1.60-3.17); Alkaline Phosphatase 74 U/L (41-126); BUN/Creat Ratio 17.64 Ratio (12.00-20.00); Blood Urea Nitrogen 19.4 mg/dL (9.0-27.0); Calcium 8.8 mg/dL (8.7-10.3); Carbon Dioxide 24.2 mmol/L (21.6-31.8); Chloride 100 mmol/L (96-109); Globulin 2.2 g/dL (1.6-3.3); Glucose 97 mg/dL (70-110); Potassium 4.1 mmol/L (3.5-5.5); Sodium 137 mmol/L (135-145); Total Bilirubin 0.6 mg/dL (0.3-1.2)
--- NOTE | 2023-05-08 09:52 | P.PN ---
Subjective Progress Note Date: 05/08/23 Principal diagnosis: Status post C5-C7 ACDF Patient was evaluated today at bedside, his was present. Patient seems to be doing a little bit better today. Nursing did mention he was pretty unstable and shaky once again with ambulation. No change in output of CICI drain. No change in output in the CICI drain. No headaches, lightheadedness, chest pain or shortness of breath Objective - Vital Signs Vital signs: Vital Signs Temp 97.8 F 05/08/23 07:55 Pulse 85 05/08/23 07:55 Resp 19 05/08/23 07:55 BP 151/67 05/08/23 07:55 Pulse Ox 94 L 05/08/23 07:55 FiO2 Intake & Output 05/07/23 05/08/23 05/08/23 18:59 06:59 18:59 Output Total 20 500 Balance -20 -500 Output: Drainage 20 Right Anterior Neck 20 Urine 500 Other: Voiding Method Urinal # Voids 2 - Exam Gen: AOx3, NAD VSS stable at this time Integument: Dressing was changed today at bedside, CICI drain was removed. Palpation: No significant tenderness with palpation noted to the anterior posterior cervical spine ROM: Full range of motion in all major muscle groups of the bilateral upper and lower extremities, no focal deficits Sensory Exam: Senory exam to light touch is intact C5-T1 Senosry exam to light touch is intact L2-S1 Motor: 4/5 strength appreciated the bilateral upper extremities with shoulder elevation, shoulder abduction, elbow extension, elbow flexion, wrist extension, wrist flexion, lead teacher 4+/5 strength appreciated to bilateral lower extremities with knee flexion, knee extension, hip flexion, plantarflexion, dorsiflexion, EHL, FHL Reflexes: 2/4 in all UE and LE Negative Chanda's, Babinski, clonus bilaterally - Labs CBC & Chem 7: 05/08/23 06:00 05/08/23 06:00 Labs: Abnormal Lab Results - Last 24 Hours (Table) 05/07/23 05/08/23 05/08/23 Range/Units 11:52 06:00 06:00 WBC 11.87 H (4.50-10.00) X 10*3/uL RBC 3.57 L (4.40-5.60) X 10*6/uL Hgb 10.5 L (13.0-17.0) g/dL Hct 32.1 L (39.6-50.0) % Anion Gap 12.80 H (4.00-12.00) mmol/L POC Glucose (mg/dL) 114 H (70-110) mg/dL AST 76 H (14-35) U/L ALT 52 H (10-49) U/L Total Protein 6.0 L (6.2-8.2) g/dL Assessment and Plan Assessment: Postoperative day #2 status post C5-C7 ACDF Plan: Pain control, continue with current medications Recommend continuing soft diet until swallowing improves DVT prophylaxis, patient has been started on Eliquis twice a day Maintain rigid c-collar at this time Weight-bear as tolerated with walker Monitor's postoperative dressing Medical recommendations appreciated Discharge planning: Would like to keep patient in hospital for an additional night to work with therapy with the hope he improves to be discharged home on 05/09/2023. We discussed the possibility of subacute rehab of his ADLs do not imp rove.
[2023-05-08 11:56] LABS: Glucose,Whole Blood 107 mg/dL (70-110)
[2023-05-08 12:57] LABS: INR 1.08 sec (0.93-1.11); Prothrombin Time 11.6 sec (9.9-11.9)
--- NOTE | 2023-05-08 13:16 | P.PN ---
Subjective Progress Note Date: 05/08/23 HISTORY OF PRESENT ILLNESS: 67-year-old male [place] for office patient with past medical history of A-fib, diabetes, hypertension, hyperlipidemia, who is on long-term anticoagulation and seen cardiology regular basis and had negative recent cardiac workup including negative heart cath for any significant blockage. The patient has been evaluated for bilateral upper extremity pain numbness tingling and radiculopathy through his testing from September last year showed significant degenerative disc disease with curvature with multiple area of spinal stenosis between C5 and C7 and degenerative disc disease between C4 and C7 MRI of the spine showed large left paracentral endplate spurring with mild anterior compression of the C2-C3, C3-C4, C4-C5. The patient had seen orthopedic and explained to him the procedure need to have done with his C5-7 ACDF.. Patient was cleared for surgery by our service and by cardiology, surgery was done successfully on 05/06/2023, he is resting comfortably in bed was admitted to the hospital afterward. Patient is on long-term anticoagulation management was placed on Lovenox for the last 5 days before his surgery will be converted back into warfarin with daily PT/INR until his INR is therapeutic Lovenox 120 mg subcutaneous twice a day was restarted back again. And if agreed by orthopedic we will start him back on warfarin between 5 and 10 mg daily till his INR is about 1.5. Will start backing off on his Lovenox. Pain is still an issue but well-managed with current medication. 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 Still having slightly problem with pain has mild problem with hoarseness of the voice. Will be continue physical therapy and switch his diet to softer diet for now but his swallowing improved. Patient would not be discharged today and will hold on till at least tomorrow or day after tomorrow might require to go to SNF. REVIEW OF SYSTEMS: CONSTITUTIONAL: Well-developed no acute respiratory distress. Resting in bed with cervical spine collar on. EYES: No icterus sclerae, no conjunctivitis. EARS, NOSE, MOUTH, THROAT, and FACE: No sore throat, lymphadenopathy, carotid bruits or deformity. RESPIRATORY: No SOB cough or wheezes. CARDIOVASCULAR: No CP, Palpitation, PND, Orthopnea, or angina. History A-fib GI no chest pain. GASTROINTESTINAL: No Abd pain, Nausea or vomiting, no Diarrhea or constipation, No GI Bleed, no distention or masses. GENITOURINARY: Negative for Hematuria or UTI, no kidney stones. INTEGUMENT/BREAST: Negative for any muscular injury with mild osteoarthritis.. HEMATOLOGIC/LYMPHATIC: Negative for bleed or purpura. MUSCULOSKELTAL: Negative for Myalgia or arthralgia. NEURLOGICAL: No LOC, Sz or syncope, blurred vision dizziness or abnormality.. BEHAVIORAL/PSYCH: Negative. ENDOCRINE: Negative. PHYSICAL EXAMINATION: General Appearance: Alert, cooperative, no distress, appears stated age. Mildly overweight resting in bed with c-collar on. Neck HEENT: Supple, no lymphadenopathy, no thyroid enlargement, no carotid bruits. Lungs: Clear to auscultation without crackles or wheezes no rhonchi, no deformity. Chest Wall: Decreased expansion with deep inspiration no tenderness and no deformity was found on exam, no costochondral pain or discomfort. Heart: Irregular rate and rhythm, S1, S2 normal, no murmur, rub or gallop. Back: Symmetric, no curvature, ROM normal, no CVA tenderness. Abdomen: Soft, non-tender, bowel sounds active all four quadrants, no masses, no organomegaly. Extremities: Extremities normal, atraumatic, no cyanosis or edema. Pulses: 2+ and symmetric. Skin: Skin color, texture, tugor normal, no rashes or lesions. Neurologic: Alert oriented x3 cranial nerves II through XII intact, still have slight weakness in the upper extremities at this point. ASSESSMENT AND PLAN: _Post C5-7 ACDF: Stable and doing well will continue to titrate physical therapy continue pain management for now. _A-fib: Pulse rate is well-controlled but patient was switched to Eliquis 5 mg twice a day. _Type 2 diabetes: Remain on metformin and pioglitazone will continue Accu-Chek with sliding scale coverage. Blood sugars much better. _Hypertension: Resume amlodipine 10 mg a day along with Hytrin 2 mg daily and still on metoprolol titrate 50 mg daily. _Hyperlipidemia patient will be started back on pravastatin 20 mg a day. _BPH: Watch for any urinary retention remain on Hytrin currently no Adames catheter, we should watch patient residual to make sure there is no retention. _Anticoagulation: Will switch to Eliquis from warfarin does not require any Lovenox. _Dysphagia: Most like secondary to the swelling around the surgery causing slight distress on the esophagus to continue soft diet for now. _Debility: Patient required 2 person funeral home assistant will continue physical therapy continue current management restart tomorrow might benefit from going to SNF. _GI prophylaxis: Pantoprazole 40 mg daily will be started. _DVT prophylaxis: Patient is already on anticoagulation. Objective - Vital Signs Vital signs: Vital Signs Temp 98.4 F 05/08/23 00:54 Pulse 81 05/08/23 00:54 Resp 18 05/08/23 00:54 BP 159/78 05/08/23 00:54 Pulse Ox 93 L 05/08/23 00:54 FiO2 Intake & Output 05/07/23 05/07/23 05/08/23 06:59 18:59 06:59 Intake Total 300 Output Total 920 20 500 Balance -620 -20 -500 Weight 108.3 kg Intake: IV 300 Output: Drainage 20 20 Right Anterior Neck 20 20 Urine 900 500 Other: Voiding Method Urinal # Voids 4 2 - Labs CBC & Chem 7: 05/08/23 06:00 05/08/23 06:00 Labs: Abnormal Lab Results - Last 24 Hours (Table) 05/07/23 Range/Units 11:52 POC Glucose (mg/dL) 114 H (70-110) mg/dL
[2023-05-08 16:36] LABS: Glucose,Whole Blood 154 mg/dL (70-110)
[2023-05-08 19:39] LABS: Glucose,Whole Blood 104 mg/dL (70-110)
[2023-05-08] MEDS: HYDROcodone/APAP 5-325MG 1 EACH TAB PO PRN (23:31)
[2023-05-09 06:01] LABS: Glucose,Whole Blood 119 mg/dL (70-110)
[2023-05-09 07:48] LABS: Prothrombin Time 11.2 sec (10.0-12.5)
--- NOTE | 2023-05-09 10:32 | P.PN ---
Subjective Progress Note Date: 05/09/23 Principal diagnosis: Status post C5-C7 ACDF Patient was evaluated today at bedside, his was present. Patient feels that he is doing a lot better since the weekend. He has been up and ambulating with minimal assistance. Speech therapy did evaluate due to the difficulty with swallowing and increasing secretions, they are recommending a barium swallow. No headaches, lightheadedness, chest pain or shortness of breath Objective - Vital Signs Vital signs: Vital Signs Temp 98.5 F 05/09/23 07:25 Pulse 86 05/09/23 07:25 Resp 17 05/09/23 07:25 BP 146/73 05/09/23 07:25 Pulse Ox 96 05/09/23 07:25 FiO2 Intake & Output 05/08/23 05/09/23 05/09/23 18:59 06:59 18:59 Output Total 300 Balance -300 Output: Urine 300 Other: Voiding Method Urinal # Voids 3 2 - Exam Gen: AOx3, NAD VSS stable at this time Integument: Dressing remains intact, no obvious drainage Palpation: No significant tenderness with palpation noted to the anterior posterior cervical spine ROM: Full range of motion in all major muscle groups of the bilateral upper and lower extremities, no focal deficits Sensory Exam: Senory exam to light touch is intact C5-T1 Senosry exam to light touch is intact L2-S1 Motor: 4/5 strength appreciated the bilateral upper extremities with shoulder elevation, shoulder abduction, elbow extension, elbow flexion, wrist extension, wrist flexion, map compiler 4+/5 strength appreciated to bilateral lower extremities with knee flexion, knee extension, hip flexion, plantarflexion, dorsiflexion, EHL, FHL Reflexes: 2/4 in all UE and LE Negative Chanda's, Babinski, clonus bilaterally - Labs CBC & Chem 7: 05/08/23 06:00 05/08/23 06:00 Labs: Abnormal Lab Results - Last 24 Hours (Table) 05/08/23 05/09/23 Range/Units 16:34 05:58 POC Glucose (mg/dL) 154 H 119 H (70-110) mg/dL Assessment and Plan Assessment: Postoperative day #3 status post C5-C7 ACDF Plan: Pain control, plan for discharge on [place] along with stool softeners Await results of the barium swallow x-ray DVT prophylaxis, patient has been started on Eliquis twice a day Maintain rigid c-collar at this time Weight-bear as tolerated with walker Monitor's postoperative dressing Medical recommendations appreciated Discharge planning: Pending barium swallow x-ray, hopeful discharge to home today Time with Patient: Less than 30
[2023-05-09 11:56] LABS: Glucose,Whole Blood 143 mg/dL (70-110)
--- NOTE | 2023-05-09 13:29 | P.DS ---
Providers Expected date of discharge: 05/09/23 Attending physician: Pedro Nobles DO Consults: 05/06/23 15:16 Consult Physician Routine Consulting Provider: Ryna Ponce Reason/Comments: Medical Management Do you want consulting provider notified?: Yes Primary care physician: Ryan Ponce Hospital Course: Date of admission: 05/06/2023 Date of discharge: 05/09/2023 Admission diagnosis: C5 to C7 spondylosis, stenosis Discharge diagnosis: Same Attending physician: Dr. Nobles Surgical procedures: C5 to C7 ACDF Brief history: Patient is a 67-year-old male with a history of C5 to C7 spondylosis, stenosis. At this point patient has failed conservative treatment measures and has opted to proceed with a elective C5 to C7 ACDF. Hospital course: Details of patient's surgery can be found in operative report. Patient tolerated the procedure well and was subsequently transported to orthopedic floor. Patient's orthopeidc and medical care was provided daily. Patient had daily laboratory tests performed for evaluation of overall blood counts. Patient had daily physical therapy to include strengthening range of motion as well as education with walker ambulation. Patient was noted to have a relatively uneventful postoperative course. Patient reported satisfactory pain control with oral pain medications by postoperative day 3. Patient showed satisfactory progress with physical therapy. Patient moved steadily through the program and had no difficulty meeting the goals by postoperative day 3. Given patient's otherwise satisfactory course and having met physical therapy goals, plan is to discharge patient home on postoperative day 3. Discharge condition/disposition: Patient will be discharged home in stable condition. Discharge medications: Instructions are given on resumption of patient's normal daily medications per primary care recommendation, in addition patient will be prescribed Durham; senna; MiraLAX; Duricef. Spine Discharge and Recovery Instructions Date of Surgery: 05/06/2023 Diagnosis: C5 to C7 spondylosis, stenosis Procedure: C5 to C7 ACDF Medications: See medication list All medication refills should be obtained through your primary care doctor or your clinic spine surgeon. Please discuss prescription refills at your follow up appointment. Do not call the hospital for medication refills. Dressing: Leave your dressing in place for a total of 5 days post operatively. Then you may remove your dressing and leave open to air. Keep the area clean and if not able to keep area clean, then cover with sterile gauze and tape. Showering: You may shower 3 days after your procedure allowing soap and water to run over incision. Do not scrub. Do not soak. Blot dry. Follow up: Please confirm a follow up appointment with your surgeon 3 weeks post operatively. Please make an appointment to follow up with your PCP in 1-2 weeks after surgery for evaluation 3 phase, 3-week plan POST OP WEEKS 1-3 1. Lifting/carrying/pushing/pulling limited to less than 5 pounds. 2. Do not sit for longer than 15 minutes at one time. Get up and walk around. Prolonged sitting is NOT advised. If you lay down, see if you can tolerate laying down on you front (belly side) 3. Walk for periods of 15 minutes = 1 mile but no longer; do it multiple times times each day. 4. Ice your low back after activity. POST OP WEEKS 3-6 1. Lifting limited to less than 20 pounds. 2. Do not sit for longer than 30 minutes at a time. Frequently change positions. Use a sit-to stand workstation or take frequent breaks from sitting if you have returned to work. 3. Walk for 30 minutes each day. If possible, do these three or more times a day POST OP WEEKS 6+ At your 6-week appointment we will give you a physical therapy referral to focus on a core stabilization and strengthening program. You should also work on leg & buttock strengthening, hamstring & quadriceps stretching, and continue a low impact aerobic activity program such as swimming, walking, or riding a stationary bicycle. During the initial 6 weeks after your surgery, you are at the highest risk of re-injuring your spine. You should generally avoid BLTs (bending, lifting and twisting combination motions) and follow the above guidelines to reduce the chance of reinjury. You can anticipate post op appointments in our office at approximately 3 weeks and 6 weeks after your surgery. INCISION CARE: If your incision is not draining you do NOT need to cover it with a dressing. Keep your incision clean, dry and intact. In most cases, we apply skin glue, brooks or sutures to the incision at the time of surgery. This will be like a crust or have the appearance of a scab and will fall off in time on its own. The stitches or brooks need to be removed at 3 weeks post op appointment. You may begin to shower 3 days after surgery (this allows the glue to nielson well). However, please avoid scrubbing the incision site or peeling off any of the skin glue. This will ensure optimal healing of your incision. Also, during this time avoid soaking the incision area in water - this includes swimming pools, hot tubs or baths. No ointments, lotions or oils on the incision until your surgeon allows. Leave brooks, sutures or glue in place. Neurological dysfunction that comes on suddenly can also be a sign of a stroke. Below some common symptoms of a stroke are listed: B - balance difficulty such as sudden onset walking or leaning to one side - NEW E - eye problem such as sudden double vision or trouble seeing on one side - NEW F - Facial weakness or numbness on one side - NEW A - Arm or leg weakness or numbness on one side - NEW S - Slurred speech or difficulty with word finding - NEW T - Time is BRAIN! Call 911 as soon as you recognize these symptoms Diet: Consume a regular diet rich in vegetables and lean protein such as chicken or fish. You should consume in a ratio of approximately 20% fats|40% carbohydrates|40%protein. Vegetables, sweet potatoes, brown rice or quinoa are examples of good carbohydrates. Chips, white bread, cookies and sweets/sugar are examples of bad carbohydrates. Limit your bad carbs, go wild with good carbs. "Life's Simple 7" Guidelines as per [place] [employer] These will help you reclaim your life after surgery and bridge painter helper in your recovery, keeping in mind your restrictions. (1) Get Active. Physical activity can help people lose weight, control high blood pressure and cholesterol, feel emotionally better, and sleep better. (2) Control Cholesterol. Avoid a diet high in saturated fat, trans fat, & cholesterol. Limit whole milk & cream, ice cream, butter, egg yolks, processed meats (like sausage and hot dogs), and fatty meats. Choose healthy foods that are low in saturated fat, trans fat and cholesterol which include: Fruits and vegetables, fiber rich grain products (like whole grain pasta and brown rice), lean meat such as chicken, fish, nuts, seeds, and legumes. (3) Eat Better. Eat small portions. Shop at the grocery with a list and do not stray from it. Tips for a healthy diet include: Limit sodium intake to less than 1500mg daily, avoid prepackaged, processed, and fast foods, choose a diet rich in fruits, vegetables, and whole grain, high fiber foods, and limit saturated & cholesterol in your diet. (4) Manage Blood Pressure. If you have high blood pressure, you should have a cuff at home so that you can check your blood pressure regularly. Be sure you have a good cuff. An arm one is generally better than a wrist one. Bring the cuff to a doctor's appointment to validate that the measurements that your cuff are taking are accurate. Take your blood pressure twice daily when you are sitting down and relaxing. Record the numbers in a log and bring this log with you to your doctors' appointments. (5) Lose Weight if your BMI is above 25. A healthy BMI is between 19-25. To calculate Your BMI, you may use a Standard BMI Calculator on the NIH BMI website: <www.nhlbi.nih.gov/guidelines/obesity/BMI/bmicalc.htm>. Weigh oneself daily. If you are overweight, set a goal to lose weight. A pound a week loss if needed is a good target. (6) Reduce Blood Sugar. Limit foods and liquids with "added sugars." (Added sugars include sucrose, fructose, glucose, maltose, dextrose, high fructose corn syrup, corn syrup, concentrated fruit juice and honey). (7) Stop Smoking. If you smoke, quitting smoking is one of the best things that you can do for your health. Smoking increases your risk of heart attack, stroke, and peripheral vascular disease, which is a build-up of plaque in your arteries. Please discard all the cigarettes and lighters in your house. Have a plan for what you will do when you have the urge to smoke. Direct and second- hand smoke shortens your life as well as the lives of your family, friends and others around you. For your health and the health of those around you, please co nsider quitting! Proper Bending Body Mechanics: Maintain a wide stance with one foot slightly in front of the other. Keep your back straight. Bend utilizing the strength in your hips and knees. Do not bend at the waist. Maintain the lifted object at your waist-level close to your body. Avoid lifting weight that causes immediately pain or pain anywhere in the body afterwards. Smoking/Nicotine If there was ever one thing that you could do to increase your overall health, decrease your risk of cardiovascular problems by about 39% the second you make the choice, it is to STOP SMOKING. Your body's most instant gratification is the second you stop smoking. We have all heard the studies, read the articles but it is true, smoking is extremely bad for your overall health, and moreover it is detrimental to your bone health. Nicotine, IN ANY FORM, kills bone cells, prevents your body from healing fractures, and significantly prolongs healing after surgery. In spine surgery specifically, it increases your risk of not healing your bones to create a fusion and increases your risk of having a revision surgery due to this up to 60%. I know it is hard. I know it feels impossible. But there are ways. Take control of your life. We are here to help you through it. And when you are ready, ask us and we can direct you to help if you desire. Use the START Plan to Quit Smoking (please visit the [employer]org website listed below for more information): S = Set a quit date. Choose a date within the next 2 weeks, so you have enough time to prepare without losing your motivation to quit. If you mainly smoke at work, quit on the weekend, so you have a few days to adjust to the change. T = Tell family, friends, and co-workers that you plan to quit. Let your friends and family in on your plan to quit smoking and tell them you need their support and encouragement to stop. Look for a quit aurelia who wants to stop smoking as well. You can help each other get through the rough times. A = Anticipate and plan for the challenges you'll face while quitting. Most people who begin smoking again do so within the first 3 months. You can help yourself make it through by preparing ahead for common challenges, such as nicotine withdrawal and cigarette cravings. R = Remove cigarettes and other tobacco products from your home, car, and work. Throw away all your cigarettes (no emergency pack!), lighters, ashtrays, and matches. Wash your clothes and freshen up anything that smells like smoke. Shampoo your car, clean your drapes and carpet, and steam your furniture. T = Talk to your doctor about getting help to quit. Your doctor can prescribe medication to help with withdrawal and suggest other alternatives. If you can't see a doctor, you can get many products over the counter at your local pharmacy or grocery store, including the nicotine patch, nicotine lozenges, and nicotine gum. Resources for Quitting Smoking: <https://www.[place].gov/documents/[facility]/Quit_Tobacco_Resources_for_patients_313 480_7.pdf> Supplementation: Take recommended dosages of Vitamin D and Calcium to help fortify your bones and help them to heal. See your health maintenance packet for dosages and recommended levels. DVT/VTE prophylaxis: You will be given compression stockings from the hospital. Wear these daily for the first two weeks after surgery. You may take them off at night. You may be prescribed a medication to help thin your blood. Take this as directed. If you are not prescribed this medication, early and frequent ambulation has been shown to be the best prophylaxis to deep vein thrombosis and sequelae related to this event. Assessment: C5 to C7 spondylosis, stenosis Procedures: C5 to C7 ACDF Patient Condition at Discharge: Good Plan - Discharge Summary Discharge Rx Participant: Yes New Discharge Prescriptions: New cefaDROXiL [Duricef] 500 mg PO Q12HR 5 Days #10 cap polyethylene glycoL 3350 [Miralax] 17 gm PO DAILY PRN #21 packet PRN Reason: Constipation HYDROcodone/APAP 5-325MG [Durham 5-325] 1 tab PO Q6HR PRN #28 tab PRN Reason: Pain Sennosides/Docusate Sodium [Senna-S 8.6-50 mg Tablet] 2 each PO DAILY PRN #30 tablet PRN Reason: Constipation No Action Cholecalciferol (Vitamin D3) [Vitamin D3 (125 MCG = 5,000 IU)] 125 mg PO DA [place] Terazosin [Hytrin] 2 mg PO HS Pravastatin Sodium [Pravachol] 20 mg PO HS amLODIPine [Norvasc] 10 mg PO QAM Pioglitazone HCl 15 mg PO QAM Metoprolol Tartrate [Lopressor] 50 mg PO QAM Enoxaparin [Lovenox] 100 mg SQ BID metFORMIN HCL 1,000 mg PO BID Magnesium 400 mg PO DAILY Warfarin [Coumadin] 5 mg PO 1900 Cyanocobalamin (Vitamin B-12) [Vitamin B-12] 1,000 mcg PO DAILY Discharge Medication List Cholecalciferol (Vitamin D3) [Vitamin D3 (125 MCG = 5,000 IU)] 125 mg PO DAILY 11/09/23 [History] Cyanocobalamin (Vitamin B-12) [Vitamin B-12] 1,000 mcg PO DAILY 01/13/23 [History] Magnesium 400 mg PO DAILY 01/13/23 [History] Metoprolol Tartrate [Lopressor] 50 mg PO QAM 01/13/23 [History] Pioglitazone HCl 15 mg PO QAM 01/13/23 [History] Pravastatin Sodium [Pravachol] 20 mg PO HS 01/13/23 [History] Terazosin [Hytrin] 2 mg PO HS 01/13/23 [History] Warfarin [Coumadin] 5 mg PO 1900 01/13/23 [History] amLODIPine [Norvasc] 10 mg PO QAM 01/13/23 [History] Enoxaparin [Lovenox] 100 mg SQ BID 05/02/23 [History] metFORMIN HCL 1,000 mg PO BID 05/02/23 [History] HYDROcodone/APAP 5-325MG [Durham 5-325] 1 tab PO Q6HR PRN #28 tab 05/09/23 [Rx] Sennosides/Docusate Sodium [Senna-S 8.6-50 mg Tablet] 2 each PO DAILY PRN #30 tablet 05/09/23 [Rx] cefaDROXiL [Duricef] 500 mg PO Q12HR 5 Days #10 cap 05/09/23 [Rx] polyethylene glycoL 3350 [Miralax] 17 gm PO DAILY PRN #21 packet 05/09/23 [Rx] Follow up Appointment(s)/Referral(s): Pedro Nobles DO [Doctor of Osteopathic Medicine] - 10 Days Patient Instructions/Handouts: Anterior Posterior Spinal Fusion (DC) Activity/Diet/Wound Care/Special Instructions: Spine Discharge and Recovery Instructions Leave your dressing in place for a total of 5 days post operatively. Then you may remove your dressing and leave open to air. Keep the area clean and if not able to keep area clean, then cover with sterile gauze and tape. Showering: You may shower 3 days after your procedure allowing soap and water to run over incision. Do not scrub. Do not soak. Blot dry. Follow up: Please confirm a follow up appointment with your surgeon 3 weeks post operatively. Please make an appointment to follow up with your PCP in 1-2 weeks after surgery for evaluation `3 phase, 3-week plan POST OP WEEKS 1-3 1. Lifting/carrying/pushing/pulling limited to less than 5 pounds. 2. Do not sit for longer than 15 minutes at one time. Get up and walk around. Prolonged sitting is NOT advised. If you lay down, see if you can tolerate laying down on you front (belly side) 3. Walk for periods of 15 minutes = 1 mile but no longer; do it multiple times times each day. 4. Ice your low back after activity. POST OP WEEKS 3-6 1. Lifting limited to less than 20 pounds. 2. Do not sit for longer than 30 minutes at a time. Frequently change positions. Use a sit-to stand workstation or take frequent breaks from sitting if you have returned to work. 3. Walk for 30 minutes each day. If possible, do these three or more times a day POST OP WEEKS 6+ At your 6-week appointment we will give you a physical therapy referral to focus on a core stabilization and strengthening program. You should also work on leg & buttock strengthening, hamstring & quadriceps stretching, and continue a low impact aerobic activity program such as swimming, walking, or riding a stationary bicycle. During the initial 6 weeks after your surgery, you are at the highest risk of re-injuring your spine. You should generally avoid BLTs (bending, lifting and twisting combination motions) and follow the above guidelines to reduce the chance of reinjury. You can anticipate post op appointments in our office at approximately 3 weeks and 6 weeks after your surgery. INCISION CARE: If your incision is not draining you do NOT need to cover it with a dressing. Keep your incision clean, dry and intact. In most cases, we apply skin glue, boroks or sutures to the incision at the time of surgery. This will be like a crust or have the appearance of a scab and will fall off in time on its own. The stitches or brooks need to be removed at 3 weeks post op appointment. You may begin to shower 3 days after surgery (this allows the glue to nielson well). However, please avoid scrubbing the incision site or peeling off any of the skin glue. This will ensure optimal healing of your incision. Also, during this time avoid soaking the incision area in water - this includes swimming pools, hot tubs or baths. No ointments, lotions or oils on the incision until your surgeon allows. Leave brooks, sutures or glue in place. Neurological dysfunction that comes on suddenly can also be a sign of a stroke. Below some common symptoms of a stroke are listed: B - balance difficulty such as sudden onset walking or leaning to one side - NEW E - eye problem such as sudden double vision or trouble seeing on one side - NEW F - Facial weakness or numbness on one side - NEW A - Arm or leg weakness or numbness on one side - NEW S - Slurred speech or difficulty with word finding - NEW T - Time is BRAIN! Call 911 as soon as you recognize these symptoms Diet: Consume a regular diet rich in vegetables and lean protein such as chicken or fish. You should consume in a ratio of approximately 20% fats|40% carbohydrates|40%protein. Vegetables, sweet potatoes, brown rice or quinoa are examples of good carbohydrates. Chips, white bread, cookies and sweets/sugar are examples of bad carbohydrates. Limit your bad carbs, go wild with good carbs. "Life's Simple 7" Guidelines as per [place] [employer] These will help you reclaim your life after surgery and bridge painter helper in your recovery, keeping in mind your restrictions. (1) Get Active. Physical activity can help people lose weight, control high blood pressure and cholesterol, feel emotionally better, and sleep better. (2) Control Cholesterol. Avoid a diet high in saturated fat, trans fat, & chol esterol. Limit whole milk & cream, ice cream, butter, egg yolks, processed meats (like sausage and hot dogs), and fatty meats. Choose healthy foods that are low in saturated fat, trans fat and cholesterol which include: Fruits and vegetables, fiber rich grain products (like whole grain pasta and brown rice), lean meat such as chicken, fish, nuts, seeds, and legumes. (3) Eat Better. Eat small portions. Shop at the grocery with a list and do not stray from it. Tips for a healthy diet include: Limit sodium intake to less than 1500mg daily, avoid prepackaged, processed, and fast foods, choose a diet rich in fruits, vegetables, and whole grain, high fiber foods, and limit saturated & cholesterol in your diet. (4) Manage Blood Pressure. If you have high blood pressure, you should have a cuff at home so that you can check your blood pressure regularly. Be sure you have a good cuff. An arm one is generally better than a wrist one. Bring the cuff to a doctor's appointment to validate that the measurements that your cuff are taking are accurate. Take your blood pressure twice daily when you are sitting down and relaxing. Record the numbers in a log and bring this log with you to your doctors' appointments. (5) Lose Weight if your BMI is above 25. A healthy BMI is between 19-25. To calculate Your BMI, you may use a Standard BMI Calculator on the NIH BMI websi te: <www.nhlbi.nih.gov/guidelines/obesity/BMI/bmicalc.htm>. Weigh oneself daily. If you are overweight, set a goal to lose weight. A pound a week loss if needed is a good target. (6) Reduce Blood Sugar. Limit foods and liquids with "added sugars." (Added sugars include sucrose, fructose, glucose, maltose, dextrose, high fructose corn syrup, corn syrup, concentrated fruit juice and honey). (7) Stop Smoking. If you smoke, quitting smoking is one of the best things that you can do for your health. Smoking increases your risk of heart attack, stroke, and peripheral vascular disease, which is a build-up of plaque in your arteries. Please discard all the cigarettes and lighters in your house. Have a plan for what you will do when you have the urge to smoke. Direct and second-hand smoke shortens your life as well as the lives of your family, friends and others around you. For your health and the health of those around you, please consider quitting! Proper Bending Body Mechanics: Maintain a wide stance with one foot slightly in front of the other. Keep your back straight. Bend utilizing the strength in your hips and knees. Do not bend at the waist. Maintain the lifted object at your waist-level close to your body. Avoid lifting weight that causes immediately pain or pain anywhere in the body afterwards. Smoking/Nicotine If there was ever one thing that you could do to increase your overall health, decrease your risk of cardiovascular problems by about 39% the second you make the choice, it is to STOP SMOKING. Your body's most instant gratification is the second you stop smoking. We have all heard the studies, read the articles but it is true, smoking is extremely bad for your overall health, and moreover it is detrimental to your bone health. Nicotine, IN ANY FORM, kills bone cells, prevents your body from healing fractures, and significantly prolongs healing after surgery. In spine surgery specifically, it increases your risk of not healing your bones to create a fusion and increases your risk of having a revision surgery due to this up to 60%. I know it is hard. I know it feels impossible. But there are ways. Take control of your life. We are here to help you through it. And when you are ready, ask us and we can direct you to help if you desire. Use the START Plan to Quit Smoking (please visit the payever.org website listed below for more information): S = Set a quit date. Choose a date within the next 2 weeks, so you have enough time to prepare without losing your motivation to quit. If you mainly smoke at work, quit on the weekend, so you have a few days to adjust to the change. T = Tell family, friends, and co-workers that you plan to quit. Let your friends and family in on your plan to quit smoking and tell them you need their support and encouragement to stop. Look for a quit aurelia who wants to stop smoking as well. You can help each other get through the rough times. A = Anticipate and plan for the challenges you'll face while quitting. Most people who begin smoking again do so within the first 3 months. You can help yourself make it through by preparing ahead for common challenges, such as nicotine withdrawal and cigarette cravings. R = Remove cigarettes and other tobacco products from your home, car, and work. Throw away all your cigarettes (no emergency pack!), lighters, ashtrays, and matches. Wash your clothes and freshen up anything that smells like smoke. Shampoo your car, clean your drapes and carpet, and steam your furniture. T = Talk to your doctor about getting help to quit. Your doctor can prescribe medication to help with withdrawal and suggest other alternatives. If you can't see a doctor, you can get many products over the counter at your local pharmacy or grocery store, including the nicotine patch, nicotine lozenges, and nicotine gum. Resources for Quitting Smoking: <https://www.[place].gov/documents/mdch/Quit_Tobacco_Resources_for_patients_313 480_7.pdf> Supplementation: Take recommended dosages of Vitamin D and Calcium to help fortify your bones and help them to heal. See your health maintenance packet for dosages and recommended levels. DVT/VTE prophylaxis: You will be given compression stockings from the hospital. Wear these daily for the first two weeks after surgery. You may take them off at night. You may be prescribed a medication to help thin your blood. Take this as directed. If you are not prescribed this medication, early and frequent ambulation has been shown to be the best prophylaxis to deep vein thrombosis and sequelae related to this event. Discharge Disposition: HOME SELF-CARE
--- NOTE | 2023-05-09 15:22 | FL ---
Modified barium swallow. HISTORY: Dysphagia. Modified barium swallow was performed with the department of speech pathology. The patient was prese nted with various consistencies of barium. There is evidence of aspiration with thin liquid barium. Penetration with the nectar thick barium. Pi riform sinus residuals. Precervical soft tissue edema following cervical fusion. Full report is to ginger tomlinson from the department of speech pathology. Impression: There is evidence of aspiration with thin liquid barium.
[2023-05-09 15:27] VITALS: BP 136/78; PULSE 87; RESP 20; TEMP 98.6
[2023-05-09 16:40] LABS: Glucose,Whole Blood 134 mg/dL (70-110)
--- NOTE | 2023-05-12 13:11 | P.PN ---
Subjective Progress Note Date: 05/09/23 HISTORY OF PRESENT ILLNESS: 67-year-old male [place] for office patient with past medical history of A-fib, diabetes, hypertension, hyperlipidemia, who is on long-term anticoagulation and seen cardiology regular basis and had negative recent cardiac workup including negative heart cath for any significant blockage. The patient has been evaluated for bilateral upper extremity pain numbness tingling and radiculopathy through his testing from September last year showed significant degenerative disc disease with curvature with multiple area of spinal stenosis between C5 and C7 and degenerative disc disease between C4 and C7 MRI of the spine showed large left paracentral endplate spurring with mild anterior compression of the C2-C3, C3-C4, C4-C5. The patient had seen orthopedic and explained to him the procedure need to have done with his C5-7 ACDF.. Patient was cleared for surgery by our service and by cardiology, surgery was done successfully on 05/06/2023, he is resting comfortably in bed was admitted to the hospital afterward. Patient is on long-term anticoagulation management was placed on Lovenox for the last 5 days before his surgery will be converted back into warfarin with daily PT/INR until his INR is therapeutic Lovenox 120 mg subcutaneous twice a day was restarted back again. And if agreed by orthopedic we will start him back on warfarin between 5 and 10 mg daily till his INR is about 1.5. Will start backing off on his Lovenox. Pain is still an issue but well-managed with current medication. 05/08/2023: He is feeling well and is not able to swallow today but has been having difficulty ambulating he required 2 person medical administrative assistant. Still having slightly problem with pain has mild problem with hoarseness of the voice. Will be continue physical therapy and switch his diet to softer diet for now but his swallowing improved. Patient would not be discharged today and will hold on till at least tomorrow or day after tomorrow might require to go to SNF. 05/09/2023: Patient is doing slightly better today moving little bit more, pain is under better control. Still been evaluated for SNF but patient is more leaning towards going home with extra help his try to convince him to go to rehab for short period time. No other change and either way probably will be discharged to either SNF or home 1 another. REVIEW OF SYSTEMS: CONSTITUTIONAL: Well-developed no acute respiratory distress. Resting in bed with cervical spine collar on. EYES: No icterus sclerae, no conjunctivitis. EARS, NOSE, MOUTH, THROAT, and FACE: No sore throat, lymphadenopathy, carotid bruits or deformity. RESPIRATORY: No SOB cough or wheezes. CARDIOVASCULAR: No CP, Palpitation, PND, Orthopnea, or angina. History A-fib GI no chest pain. GASTROINTESTINAL: No Abd pain, Nausea or vomiting, no Diarrhea or constipation, No GI Bleed, no distention or masses. GENITOURINARY: Negative for Hematuria or UTI, no kidney stones. INTEGUMENT/BREAST: Negative for any muscular injury with mild osteoarthritis.. HEMATOLOGIC/LYMPHATIC: Negative for bleed or purpura. MUSCULOSKELTAL: Negative for Myalgia or arthralgia. NEURLOGICAL: No LOC, Sz or syncope, blurred vision dizziness or abnormality.. BEHAVIORAL/PSYCH: Negative. ENDOCRINE: Negative. PHYSICAL EXAMINATION: General Appearance: Alert, cooperative, no distress, appears stated age. Mildly overweight resting in bed with c-collar on. Neck HEENT: Supple, no lymphadenopathy, no thyroid enlargement, no carotid bruits. Lungs: Clear to auscultation without crackles or wheezes no rhonchi, no deformity. Chest Wall: Decreased expansion with deep inspiration no tenderness and no deformity was found on exam, no costochondral pain or discomfort. Heart: Irregular rate and rhythm, S1, S2 normal, no murmur, rub or gallop. Back: Symmetric, no curvature, ROM normal, no CVA tenderness. Abdomen: Soft, non-tender, bowel sounds active all four quadrants, no masses, no organomegaly. Extremities: Extremities normal, atraumatic, no cyanosis or edema. Pulses: 2+ and symmetric. Skin: Skin color, texture, tugor normal, no rashes or lesions. Neurologic: Alert oriented x3 cranial nerves II through XII intact, still have slight weakness in the upper extremities at this point. ASSESSMENT AND PLAN: _Post C5-7 ACDF: Stable and doing well will continue to titrate physical therapy continue pain management for now. _A-fib: Pulse rate is well-controlled but patient was switched to Eliquis 5 mg twice a day. _Type 2 diabetes: Remain on metformin and pioglitazone will continue Accu-Chek with sliding scale coverage. Blood sugars much better. _Hypertension: Resume amlodipine 10 mg a day along with Hytrin 2 mg daily and still on metoprolol titrate 50 mg daily. _Hyperlipidemia patient will be started back on pravastatin 20 mg a day. _BPH: Watch for any urinary retention remain on Hytrin currently no Adames catheter, we should watch patient residual to make sure there is no retention. _Anticoagulation: Continue Eliquis patient is tolerating medication well. _Dysphagia: Most like secondary to the swelling around the surgery causing slight distress on the esophagus to continue soft diet for now. _Pain control: Patient is tolerating hydrocodone very well with no major reaction or side effect and no sign of urinary retention. _Debility: Still required little bit extra help continue PT OT and if he is still deciding determined to go home with home health can probably be done with home physical therapy. Discharge planning: Hopefully patient be going today. Objective - Vital Signs Vital signs: Vital Signs Temp 98.6 F 05/09/23 01:02 Pulse 78 05/09/23 01:02 Resp 18 05/09/23 01:02 BP 135/74 05/09/23 01:02 Pulse Ox 95 05/09/23 01:02 FiO2 Intake & Output 05/08/23 05/08/23 05/09/23 06:59 18:59 06:59 Output Total 500 300 Balance -500 -300 Output: Urine 500 300 Other: Voiding Method Urinal Urinal # Voids 3 2 - Labs CBC & Chem 7: 05/08/23 06:00 05/08/23 06:00 Labs: Abnormal Lab Results - Last 24 Hours (Table) 05/08/23 05/08/23 05/08/23 Range/Units 06:00 06:00 16:34 WBC 11.87 H (4.50-10.00) X 10*3/uL RBC 3.57 L (4.40-5.60) X 10*6/uL Hgb 10.5 L (13.0-17.0) g/dL Hct 32.1 L (39.6-50.0) % Anion Gap 12.80 H (4.00-12.00) mmol/L POC Glucose (mg/dL) 154 H (70-110) mg/dL AST 76 H (14-35) U/L ALT 52 H (10-49) U/L Total Protein 6.0 L (6.2-8.2) g/dL 05/09/23 Range/Units 05:58 WBC (4.50-10.00) X 10*3/uL RBC (4.40-5.60) X 10*6/uL Hgb (13.0-17.0) g/dL Hct (39.6-50.0) % Anion Gap (4.00-12.00) mmol/L POC Glucose (mg/dL) 119 H (70-110) mg/dL AST (14-35) U/L ALT (10-49) U/L Total Protein (6.2-8.2) g/dL
== END 2023-05-09 17:35 | disposition home or self-care (01) | DRG 454 ==
LOC: OR 10:43 → 4SSUR 14:53 → OR 05-08 09:51 → 4SSUR 05-08 09:51 → OR 05-09 17:35 → 4SSUR 05-09 17:35
PROVIDERS: ADMIT Orthopaedic Surgery; ATTEND Orthopaedic Surgery
PROC: 0RG2071 Fusion of 2 or more Cervical Vertebral Joints with Autologous Tissue Substitute, Posterior Approach, Posterior Column, Open Approach (ICD-10-PCS; principal; 2023-05-06 12:30)
PROC: 4A11X4G Monitoring of Peripheral Nervous Electrical Activity, Intraoperative, External Approach (ICD-10-PCS; principal; 2023-05-06 12:30)
PROC: 0RG20A0 Fusion of 2 or more Cervical Vertebral Joints with Interbody Fusion Device, Anterior Approach, Anterior Column, Open Approach (ICD-10-PCS; principal; 2023-05-06 12:30)
PROC: 00NW0ZZ Release Cervical Spinal Cord, Open Approach (ICD-10-PCS; principal; 2023-05-06 12:30)
PROC: 01N10ZZ Release Cervical Nerve, Open Approach (ICD-10-PCS; principal; 2023-05-06 12:30)
PROC: 0RT30ZZ Resection of Cervical Vertebral Disc, Open Approach (ICD-10-PCS; principal; 2023-05-06 12:30)
PROC: 0RG2070 Fusion of 2 or more Cervical Vertebral Joints with Autologous Tissue Substitute, Anterior Approach, Anterior Column, Open Approach (ICD-10-PCS; principal; 2023-05-06 12:30)
DX: M47.12 Other spondylosis with myelopathy, cervical region (principal); D68.9 Coagulation defect, unspecified; M50.022 Cervical disc disorder at C5-C6 level with myelopathy; M47.22 Other spondylosis with radiculopathy, cervical region; I27.20 Pulmonary hypertension, unspecified; I48.0 Paroxysmal atrial fibrillation; E11.9 Type 2 diabetes mellitus without complications; E04.1 Nontoxic single thyroid nodule; I10 Essential (primary) hypertension; I08.1 Rheumatic disorders of both mitral and tricuspid valves; M48.02 Spinal stenosis, cervical region; M25.78 Osteophyte, vertebrae; E78.5 Hyperlipidemia, unspecified; N40.0 Benign prostatic hyperplasia without lower urinary tract symptoms; R13.10 Dysphagia, unspecified; M19.90 Unspecified osteoarthritis, unspecified site; H91.90 Unspecified hearing loss, unspecified ear; G47.9 Sleep disorder, unspecified; R26.2 Difficulty in walking, not elsewhere classified; R49.0 Dysphonia; R51.9 Headache, unspecified; R55 Syncope and collapse; Z85.828 Personal history of other malignant neoplasm of skin; Z87.891 Personal history of nicotine dependence; Z79.01 Long term (current) use of anticoagulants; Z79.84 Long term (current) use of oral hypoglycemic drugs; Z79.899 Other long term (current) drug therapy; Z88.2 Allergy status to sulfonamides; Z88.1 Allergy status to other antibiotic agents
CPT/HCPCS: 72040; 74230; 85610

== ENCOUNTER → 2023-12-20 | Outpatient (CLI) | payer MEDICARE, OTHER ==
--- NOTE | 2023-12-21 10:57 | NM ---
EXAMINATION TYPE: NM DatScan Brain SPECT DATE OF EXAM: 12/20/2023 COMPARISON: NONE HISTORY: Tremors TECHNIQUE: 10 drops of Lugol's solution was administered 1 hour prior to injection as a thyroid bloc filiberto agent. After the administration of 4.28 mCi I-123 Ioflupane DaTscan. Images obtained 3 hours p ost injection. SPECT images of the brain were acquired with axial and coronal reconstructions. FINDINGS: The axial SPECT images demonstrate increased background activity and reduced activity withi n the bilateral striata. Z score analysis performed. IMPRESSION: Abnormal appearance highly suggestive of idiopathic Parkinson's disease or Parkinsonian s yndrome. [facility], , 12/21/2023 10:55 AM
== END ==
LOC: RADNMMAIN 10:37
PROVIDERS: ATTEND Psychiatry & Neurology Neurology
DX: R25.1 Tremor, unspecified (principal)
CPT/HCPCS: 78803

== ENCOUNTER → 2024-04-10 | Outpatient (CLI) | payer MEDICARE, OTHER ==
[2024-04-10 16:39] VITALS: BP 127/69; PULSE 80; RESP 16; TEMP 98.2
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
== END ==
LOC: 3 N SLEEP 15:17
PROVIDERS: ATTEND Internal Medicine Critical Care Medicine
DX: C44.99 Other specified malignant neoplasm of skin, unspecified (principal); G47.10 Hypersomnia, unspecified; G47.52 REM sleep behavior disorder; G20.C Parkinsonism, unspecified; E11.9 Type 2 diabetes mellitus without complications; G47.9 Sleep disorder, unspecified; I48.20 Chronic atrial fibrillation, unspecified; I10 Essential (primary) hypertension; E78.5 Hyperlipidemia, unspecified; F50.9 Eating disorder, unspecified; M19.90 Unspecified osteoarthritis, unspecified site; N40.1 Benign prostatic hyperplasia with lower urinary tract symptoms; Z68.32 Body mass index [BMI] 32.0-32.9, adult; Z88.2 Allergy status to sulfonamides
CPT/HCPCS: 99211

== ENCOUNTER 2024-04-18 19:36 | Outpatient (CLI) | payer MEDICARE, OTHER ==
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
== END 2024-04-19 05:40 | disposition home or self-care (01) ==
LOC: 3 N SLEEP 19:36
PROVIDERS: ATTEND Internal Medicine Critical Care Medicine
DX: C44.90 Unspecified malignant neoplasm of skin, unspecified (principal); G47.10 Hypersomnia, unspecified; Z68.32 Body mass index [BMI] 32.0-32.9, adult; G20.C Parkinsonism, unspecified; E11.9 Type 2 diabetes mellitus without complications; I48.20 Chronic atrial fibrillation, unspecified; I10 Essential (primary) hypertension; E78.5 Hyperlipidemia, unspecified; M19.09 Primary osteoarthritis, other specified site; F50.9 Eating disorder, unspecified; N40.0 Benign prostatic hyperplasia without lower urinary tract symptoms; Z88.2 Allergy status to sulfonamides

== ENCOUNTER → 2024-05-17 | Outpatient (CLI) | payer MEDICARE, OTHER ==
--- NOTE | 2024-05-21 22:20 | P.PCN ---
Date of Procedure: 05/17/24 Operative Findings: This 68-year-old male patient was referred to me for sleep apnea evaluation. The patient was recently diagnosed having Parkinson disease and the patient was started on Sinemet. He is feeling exhausted and tired and fatigued throughout the day and the patient can easily take a nap or 2 on a daily basis. The patient goes to bed at around 11 PM wakes up 8 AM in the morning. He snores. More recently, is acting up in the middle of the night where he gets up and he gets more active and restless and on 1 occasion he has punched his and on another occasion he has jumped out of bed on the nightstand and sustained injury to his head. No symptoms of numbness or tingling to his lower extremities. Occasional sleep talking. Denies waking up choking or gasping for air. No nocturia. No reported head trauma. No weight gain. No substance abuse. No alcoholism. He is a smoker. No sleep paralysis. No hallucinations. No cataplexy. Based on those symptoms, the patient was referred to me. Currently is under care of Dr. Snowden The patient underwent a polysomnography on 04/18/2024. The study itself was suboptimal due to the limited number of hours of sleep and the overall stability was 25.4%. Based on that, the patient was brought in for a home sleep study. Pertinent physical findings The patient's weight is 237 with a BMI of 32.6 Technical description The [employer] system was used to complete his home sleep study. This is a type III home sleep study evaluation. The total recording duration was 6055 minutes. The study started at 10:22 PM and ended at 5:18 AM. There was a total of 6 hours and 42 minutes of flow monitoring and 6 hours and 44 minutes of oxygen saturation monitoring Results The sleep study respiratory analysis showed no obstructive apneas and there was a total of 21 obstructive hypopneas with an AHI of 3.1 Oxygenation analysis The baseline pulse ox while the patient was awake was 96%. Average pulse ox during sleep was 91% and a minimum pulse ox of 86% and the patient spent only 9 minutes of sleep time at a pulse ox of below 89% Cardiac summary Average heart rate was 67 with a minimum heart rate 54 and a maximum heart of 95 Assessment No evidence of any sleep breathing disorder based on the current home sleep study. The patient is AHI is at 3.1. Few obstructive hypopneas were noted yet this has not justify any treatment Insomnia, suspected Excessive hypersomnia, current [place] score is at 8. Rule out chronic fatigue secondary to underlying Parkinson's disease. The patient has no significant weight gain. His current body mass index is 32.5. Mallampati class III. 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 This sleep disorder is strongly linked to to Parkinson's disease. Parkinson's disease, currently on Sinemet Diabetes mellitus type 2 Chronic A-fib maintained on anticoagulation with Eliquis Hypertension Hyperlipidemia Eating disorder Osteoarthritis BPH Skin cancer Plan No need for CPAP therapy Watch for any signs and symptoms of REM behavior disorder and treat accordingly Continue Sinemet Maintain regular sleep schedule Maintain good sleep hygiene measures Avoid any sleep deprivation or alcohol use Will continue to follow.
== END ==
LOC: 3 N SLEEP 16:28
PROVIDERS: ATTEND Internal Medicine Critical Care Medicine
DX: C44.90 Unspecified malignant neoplasm of skin, unspecified (principal); E11.9 Type 2 diabetes mellitus without complications; G47.33 Obstructive sleep apnea (adult) (pediatric); G20.A1 Parkinson's disease without dyskinesia, without mention of fluctuations; I48.20 Chronic atrial fibrillation, unspecified; I10 Essential (primary) hypertension; E78.5 Hyperlipidemia, unspecified; M19.90 Unspecified osteoarthritis, unspecified site; N40.0 Benign prostatic hyperplasia without lower urinary tract symptoms; F50.9 Eating disorder, unspecified; Z68.32 Body mass index [BMI] 32.0-32.9, adult; F91.9 Conduct disorder, unspecified; Z88.2 Allergy status to sulfonamides